=== PATIENT | male | born 1970 ===

== ENCOUNTER 2017-01-26 23:42 | Inpatient (IN) | payer MEDICAID, SELFPAY ==
[2017-01-27] MEDS ORDERED: Labetalol 5 mg/ml Inj 20ML IVP STA (00:28)
--- NOTE | 2017-01-27 00:29 | ED PDOC ---
HPI: General Adult Time Seen by Provider: 01/26/17 23:58 Chief Complaint (Nursing): Dizziness/Lightheaded Chief Complaint (Provider): Left sided upper and lower extremity weakness History Per: Patient History/Exam Limitations: no limitations Onset/Duration Of Symptoms: Hrs Have you had recent travel within the past 21 days to any of the following countries: [place], [place], [place] or [place]?: No Current Symptoms Are (Timing): Still Present Additional History Per: Patient Additional Complaint(s): 46yo male with past medical history of hypertension, occasionally non-complaint with his Metroprolol, presents to ED for evaluation of left sided upper and lower extremity numbness and weakness, present since 11AM yesterday. Patient reports numbness and loss of strength to his left upper and lower extremity; also reports dizziness. He additionally states he missed his dose of Metroprolol yesterday. Patient denies any headache or vision changes and states his right upper and lower extremities are normal. Patient offers no other medical complaints. NIHSS Stroke Scale - Date/Time Evaluation Performed Date Performed: 01/27/17 Time Performed: 00:00 When Was NIHSS Performed: Baseline - How Severe is the Stroke Level of Consciousness: 0=Alert LOC to Questions: 0=Both comments correct LOC to commands: 0=Obeys both correctly Best Gaze: 0=Normal Visual: 0=No visual loss Facial: 1=Minor asymmetry Motor Arm - Left: 1=Drift noted before 10 sec Motor Arm - Right: 0=No drift Motor Leg - Left: 0=No drift Motor Leg - Right: 0=No drift Limb Ataxia: 0=Absent Sensory: 0=Normal Best Language: 0=No aphasia Dysarthia: 1=Mild to moderate slurring Extinction & Inattention (Neglect): 0=Normal, no object Score: 3 Past Medical History Reviewed: Historical Data, Nursing Documentation, Vital Signs Vital Signs: Last Vital Signs Temp 98.4 F 01/26/17 23:50 Pulse 78 01/27/17 00:53 Resp 14 01/27/17 00:45 BP 222/153 H 01/27/17 00:53 Pulse Ox 100 01/27/17 01:20 - Medical History PMH: HTN - Surgical History Surgical History: No Surg Hx - Family History Family History: States: No Known Family Hx - Social History Current smoker - smoking cessation education provided: No Ex-Smoker (has not smoked in the last 12 months): No Alcohol: None Drugs: Denies - Home Medications Home Medications: Ambulatory Orders Medication Instructions Recorded Lisinopril [Zestril] 10 mg PO DAILY 01/27/17 Metoprolol Succinate [Toprol XL] 50 mg PO DAILY 01/27/17 - Allergies Allergies/Adverse Reactions: Allergies Allergy/AdvReac Type Severity Reaction Status Date / Time No Known Allergies Allergy Verified 01/26/17 23:50 Review of Systems ROS Statement: Except As Marked, All Systems Reviewed And Found Negative Neurological: Positive for: Weakness (left upper and lower extremity), Change in Speech, Dizziness. Negative for: Headache Physical Exam - Reviewed Nursing Documentation Reviewed: Yes Vital Signs Reviewed: Yes - Physical Exam Appears: Positive for: Non-toxic Head Exam: Positive for: ATRAUMATIC, NORMAL INSPECTION, NORMOCEPHALIC Skin: Positive for: Warm Eye Exam: Positive for: Normal appearance ENT: Positive for: Normal ENT Inspection Neck: Positive for: Supple Cardiovascular/Chest: Positive for: Regular Rate, Rhythm Respiratory: Positive for: Normal Breath Sounds. 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 Negative for: Cerebellar Tests - Laboratory Results Result Diagrams: 01/27/17 00:10 01/27/17 00:10 - ECG O2 Sat by Pulse Oximetry: 100 (RA) Pulse Ox Interpretation: Normal - Critical Care Total Time (In Min): 60 Medical Decision Making Medical Decision Making: Time: 6 Impression: Right sided CVA w/ left sided deficits Plan: -- CT Head w/o contrast -- Labs -- Chest x-ray -- Labetalol 10 mg IVP Reassess Time: 54 CT Head FINDINGS: Brain: No acute intracranial hemorrhage. No significant white matter disease. No edema. Ventricles: No significant ventriculomegaly. Bones: No acute displaced fracture. Sinuses: Unremarkable as visualized. No acute sinusitis. Mastoid air cells: Unremarkable as visualized. No mastoid effusion. IMPRESSION: No acute intracranial hemorrhage, or suspicious mass effect. Acute infarction may be CT occult within first 24 hours. If a focal deficit persists, consider followup CT or MRI for further evaluation. Case discussed with Dr. Carpio and patient to be admitted to ICU for CVA, Hypertensive Emergency and MARIANELA. Case discussed with Dr. Haney, neurology, who agrees with admission. Scribe Attestation: Documented by Luciana Galvin acting as a scribe for Sabas Castano MD. Provider Attestation: All medical record entries made by the Scribe were at my direction and personally dictated by me. I have reviewed the chart and agree that the record accurately reflects my personal performance of the history, physical exam, medical decision making, and the department course for this patient. I have also personally directed, reviewed, and agree with the discharge instructions and disposition. Disposition - Clinical Impression Clinical Impression: CVA (cerebral vascular accident), Hypertensive emergency - Patient ED Disposition Is Patient to be Admitted: Yes - Disposition Disposition Time: 00:45 Condition: SERIOUS
[2017-01-27 00:35] LABS: BASO # 0.1 K/uL (0.0-0.2); BASO % 0.7 % (0.0-2.0); EOS # 0.5 K/uL (0.0-0.7); EOS % 4.1 % (0.0-4.0); HEMATOCRIT 41.8 % (35.0-51.0); LYMPH % 26.6 % (20.0-40.0); MEAN CELL VOLUME 90.5 fl (80.0-94.0); MEAN CORPUSCULAR HEMOGLOBIN 30.9 pg (27.0-31.0); MEAN CORPUSCULAR HGB CONC 34.1 g/dL (33.0-37.0); MEAN PLATELET VOLUME 12.4 fl (7.2-11.7); MONO # 0.8 K/uL (0.0-0.8); MONO % 7.1 % (0.0-10.0); NEUT # 6.9 K/uL (1.8-7.0); NEUT % 61.5 % (50.0-75.0); NRBC % 0.1 % (0.0-0.0); RED CELL DISTRIBUTION WIDTH 13.4 % (11.5-14.5); WHITE BLOOD COUNT 11.2 K/uL (4.8-10.8)
[2017-01-27 00:42] LABS: ALB/GLOB RATIO 1.4 (1.0-2.1); BILIRUBIN,TOTAL 0.7 mg/dl (0.2-1.3); CALCIUM 9.5 mg/dL (8.4-10.2); POTASSIUM 3.7 MMOL/L (3.6-5.0); TOTAL PROTEIN 8.2 G/DL (6.3-8.2)
[2017-01-27 00:46] LABS: PARTIAL THROMBOPLASTIN TIME 34.3 Seconds (25.6-37.1)
[2017-01-27] MEDS ORDERED: Labetalol 300 MG in Dextrose 5% In Water 240 ML IV ONE (00:51)
--- NOTE | 2017-01-27 00:55 | CT ---
EXAM: CT Head Without Intravenous Contrast CLINICAL HISTORY: 46 years old, male; Signs and symptoms; Dizziness; Additional info: L sided weakness TECHNIQUE: Axial computed tomography images of the head/brain without intravenous contrast. All CT scans at this facility use one or more dose reduction techniques, viz.: automated exposure control; ma/kV adjustment per patient size (including targeted exams where dose is matched to indication; i.e. head); or iterative reconstruction technique. Coronal and sagittal reformatted images were created and reviewed. COMPARISON: No relevant prior studies available. FINDINGS: Brain: No acute intracranial hemorrhage. No significant white matter disease. No edema. Ventricles: No significant ventriculomegaly. Bones: No acute displaced fracture. Sinuses: Unremarkable as visualized. No acute sinusitis. Mastoid air cells: Unremarkable as visualized. No mastoid effusion. IMPRESSION: No acute intracranial hemorrhage, or suspicious mass effect. Acute infarction may be CT occult within first 24 hours. If a focal deficit persists, consider followup CT or MRI for further evaluation.
[2017-01-27 00:56] LABS: TROPONIN I 0.031 ng/mL (0.00-0.120)
--- NOTE | 2017-01-27 03:16 | CP.PCM.HP ---
History of Present Illness - History of Present Illness History of Present Illness: 46 yr old male with hx of HTN on Lopressor and daily baby ASA therapy who skipped his daily meds x 1 day and next day noted some numbness, slurred speech , LUE and LLE numness after he woke up from sleep along with some dizziness. Took his meds after the onset of symptoms but continued to have the symptoms several hours later and presented himdelf to ER in the evening by which time the pt was outside the window for TPA therapy as per ER physician. His BP was significantly elevated on arrival and was started iv vasopressors by ED physician. Work up in ED included CT head which was neg for any acute pathology. Pt also denied any severe headache, CP, LOC, any visual changes or any seizure activity. He was admitted on recomendation of Neuro MD to ICU for further management. He was alert awake at time of evaluation and in company of his family. Present on Admission - Present on Admission Any Indicators Present on Admission: No History of DVT/PE: No History of Uncontrolled Diabetes: No Urinary Catheter: No Decubitus Ulcer Present: No Decubitus Ulcer Location: none History Surgical Site Infection Following: None Review of Systems - Review of Systems Review of Systems: All 14 sysyems reviewed and no other added findings except for hx of HTN - Constitutional Constitutional: As Per HPI Past Patient History - Tetanus Immunizations Tetanus Immunization: Unknown - Past Medical History & Family History Past Medical History?: Yes Pertinent Family History: Past hx oh HTN. Family Hx of CVA in an aunt and Colon Ca in an uncle. - Past Social History Smoking Status: Never Smoked Alcohol: None Drugs: Denies - CARDIAC Hx Cardiac Disorders: No Hx Angina: No Hx Atrial Fibrillation: No Hx Cardia Arrhythmia: No Hx Circulatory Problems: No Hx Congestive Heart Failure: No Hx Hypertension: Yes - PULMONARY Hx Respiratory Disorders: No Hx Asthma: No Hx Bronchitis: No Hx Chronic Obstructive Pulmonary Disease (COPD): No Hx Lung Cancer: No Hx Sleep Apnea: No - NEUROLOGICAL Hx Neurological Disorder: No HX Cerebrovascular Accident: No Hx Seizures: No Hx Transient Ischemic Attacks (TIA): No - HEENT Hx HEENT Problems: No - RENAL Hx Chronic Kidney Disease: No Hx Renal Failure: No - ENDOCRINE/METABOLIC Hx Endocrine Disorders: No Hx Diabetes Mellitus Type 2: No - HEMATOLOGICAL/ONCOLOGICAL Hx Cancer: No Hx Cirrhosis: No Hx Hepatitis A: No Hx Hepatitis B: No Hx Hepatitis C: No - INTEGUMENTARY Hx Dermatological Problems: No Hx Eczema: No Hx Melanoma: No - MUSCULOSKELETAL/RHEUMATOLOGICAL Hx Musculoskeletal Disorders: No Hx Arthritis: No Hx Fractures: No - GASTROINTESTINAL Hx Gastrointestinal Disorders: No - GENITOURINARY/GYNECOLOGICAL Hx Genitourinary Disorders: No - PSYCHIATRIC Hx Psychophysiologic Disorder: No Hx Substance Use: No - SURGICAL HISTORY Hx Surgeries: No - ANESTHESIA Hx Anesthesia: No Meds Allergies/Adverse Reactions: Allergies Allergy/AdvReac Type Severity Reaction Status Date / Time No Known Allergies Allergy Verified 01/26/17 23:50 Physical Exam - Constitutional Appears: Well, Non-toxic - Head Exam Head Exam: ATRAUMATIC, NORMAL INSPECTION, NORMOCEPHALIC - Eye Exam Eye Exam: Normal appearance, PERRL Pupil Exam: NORMAL ACCOMODATION - ENT Exam ENT Exam: Normal Exam, Normal External Ear Exam - Neck Exam Neck exam: Positive for: Full Rom, Normal Inspection - Respiratory Exam Respiratory Exam: Clear to Auscultation Bilateral, NORMAL BREATHING PATTERN - Cardiovascular Exam Cardiovascular Exam: REGULAR RHYTHM, RRR - GI/Abdominal Exam GI & Abdominal Exam: Normal Bowel Sounds, Soft - Exam Exam: NORMAL INSPECTION - Extremities Exam Extremities exam: Positive for: full ROM, normal inspection - Back Exam Back exam: NORMAL INSPECTION - Neurological Exam Neurological exam: Normal Gait Additional comments: Mild L sided facial drool and thickness of voice as per family. Also subjective CHICO and LL extremity numbness. - Skin Skin Exam: Intact, Normal Color, Warm Results - Vital Signs Recent Vital Signs: Last Vital Signs Temp 98.4 F 01/26/17 23:50 Pulse 78 01/27/17 01:55 Resp 18 01/27/17 01:55 BP 207/148 H 01/27/17 01:55 Pulse Ox 100 01/27/17 01:49 - Labs Result Diagrams: 01/27/17 00:10 01/27/17 00:10 Labs: Laboratory Results - last 24 hr 01/27/17 01/27/17 01/27/17 00:10 00:10 00:10 WBC 11.2 H RBC 4.62 Hgb 14.3 Hct 41.8 MCV 90.5 MCH 30.9 MCHC 34.1 RDW 13.4 Plt Count 136 MPV 12.4 H Neut % (Auto) 61.5 Lymph % (Auto) 26.6 [place] % (Auto) 7.1 Eos % (Auto) 4.1 H Baso % (Auto) 0.7 Neut # 6.9 Lymph # 3.0 [place] # 0.8 Eos # 0.5 Baso # 0.1 PT 12.6 INR 1.1 APTT 34.3 Sodium 145 Potassium 3.7 Chloride 107 Carbon Dioxide 23 Anion Gap 19 BUN 27 H Creatinine 1.9 H Est GFR ( Amer) 46 Est GFR (Non-Af Amer) 38 Random Glucose 114 H Calcium 9.5 Total Bilirubin 0.7 AST 24 ALT 33 Alkaline Phosphatase 81 Troponin I 0.0310 Total Protein 8.2 Albumin 4.8 Globulin 3.4 Albumin/Globulin Ratio 1.4 Triglycerides 226 H Cholesterol 225 H LDL Cholesterol Direct 140 H HDL Cholesterol 50 Blood Type Antibody Screen BBK History Checked 01/27/17 00:10 WBC RBC Hgb Hct MCV MCH MCHC RDW Plt Count MPV Neut % (Auto) Lymph % (Auto) [place] % (Auto) Eos % (Auto) Baso % (Auto) Neut # Lymph # [place] # Eos # Baso # PT INR APTT Sodium Potassium Chloride Carbon Dioxide Anion Gap BUN Creatinine Est GFR ( Amer) Est GFR (Non-Af Amer) Random Glucose Calcium Total Bilirubin AST ALT Alkaline Phosphatase Troponin I Total Protein Albumin Globulin Albumin/Globulin Ratio Triglycerides Cholesterol LDL Cholesterol Direct HDL Cholesterol Blood Type O NEGATIVE Antibody Screen Negative BBK History Checked No verified bt - EKG Data EKG comments: NSR without any Ac ST-t Changes - Impressions Impression: CT head neg for any ac intracranial pathology. Assessment & Plan - Assessment and Plan (Free Text) Assessment: 46 yr old male with hx of HTN who skipped his daily meds x 1 day and next day noted some numbness, slurred speech, LUE and LLE numness after he woke up from sleep along with some dizziness. Pt was outside the window for TPA therapy.Work up in ED included CT head which was neg for any acute pathology. However his BP was significantly elevated and was admitted after the initial interventions to ICU for further management. Plan: 1. Admit to ICU for close hemodynamic monitoring and necessary interventions. 2. Fall and sezure precautions. 3. Neurocheck round the clock for any change in neural status. 4. IV antihypertensive meds but keep SBP between 170-180 to avoid any compromise in neural perfusion. 5. Initiate ASA therapy. 6. Stress ulcer and DVT prophylaxis with proton pump inhibitor, SCD and SC anti coagulant therapy. 7. Seriel troponins, Carotid doppler and ECHO as TIA and hypertensive emergency work up. 8. PT and speech consults. 9. Neurology consult and follow up. The pt during hospital stay shall be followed by hospitalist service, neurology and inteve care service and post discharge sent for further up under care of his PMD
[2017-01-27 06:33] LABS: CALCIUM 9.7 mg/dL (8.4-10.2); POTASSIUM 3.7 MMOL/L (3.6-5.0)
[2017-01-27 07:00] LABS: THYROID STIMULATING HORMONE 2.75 mIU/ML (0.46-4.68)
--- NOTE | 2017-01-27 07:06 | RAD ---
HISTORY: L sided weakness COMPARISON: No prior. FINDINGS: LUNGS: No active pulmonary disease. PLEURA: No significant pleural effusion identified, no pneumothorax apparent. CARDIOVASCULAR: Normal. OSSEOUS STRUCTURES: No significant abnormalities. VISUALIZED UPPER ABDOMEN: Normal. OTHER FINDINGS: None. IMPRESSION: No active disease.
--- NOTE | 2017-01-27 08:48 | CP.CCUPN ---
CCU Subjective - Physician Review Subjective (Free Text): ICU admission and consultation: discussed with Night Hospitalist MD: 46M admitted overnight for acute onset left facial droop, slurred speech and left hemiparesis, had not taking usual home meds the day prior to onset of symptoms, but took ASA and Lopressor after symptoms began and were noted to be non-resolving which prompted ER eval. He came to ER approx. 12H after onset of symptoms, CT Brain did not show any acute bleed nor other acute pathology. BP elevation to 220/150, HR 78 prompted treatment with IV Labetalol infusion. This continued until 500AM with discontinuation of Labetalol with BP down to 142/89. Presently , awake and alert, still has left hemiparesis, left facial asymmetry not so apparent now, mild dysarthria noted. BP now 165/96 with HR 77. He denies any headache, dizziness, nausea, visual changes, vertigo, palpitations, chest discomfort or SOB at bed rest. Other vitals and I/O's reviewed. Allergies: NKDA ROS: No other pertinent negs or positives on 10+ system review. Outpt Meds: Zestril, Toprol XL PMSFH: ----All Nursing and physician documentation reviewed to date; no new pertinent info noted relevant to current medical problems. MAJOR PROBLEMS: 1. CVA, r/o R MCA distribution 2. Accelerated HTN 2 #1 3. Azotemia, r/o Dehydration vs CKD / MARIANELA 4. Hyperlipidemia 5. Hyperglycemia, r/o DM II PLAN: 1. Treat for sustained BP elevation above MAP 120 only with IVPB Labetalol. 2. Repeat CT or MRI brain imaging 24H later or as directed by Neurology. 3. Resume ACEi and Metoprolol. 4. ASA, Statin stated. 5. PT/OT eval. CCU Objective - Vital Signs / Intake & Output Vital Signs (Last 4 hours): Vital Signs Temp Pulse Resp BP Pulse Ox 01/27/17 08:00 98.3 F 77 15 165/96 H 99 01/27/17 07:00 69 15 148/87 99 01/27/17 06:00 66 14 147/103 H 99 01/27/17 05:00 70 15 142/89 98 Intake and Output (Last 8hrs): Intake & Output 01/26/17 01/27/17 01/27/17 22:59 06:59 14:59 Intake Total 170 Output Total 200 Balance -30 Weight 180 lb Intake: IV 120 Oral 50 Output: Urine 200 Urine, Voided 200 Other: # Voids Urine, Voided 1 - Physical Exam Head: Positive for: Normocephalic Pupils: Positive for: PERRL Extroacular Muscles: Positive for: EOMI Conjunctiva: Positive for: Normal Mouth: Positive for: Moist Mucous Membranes Neck: Positive for: Normal Range of Motion. Negative for: Meningeal Signs, JVD Respiratory/Chest: Positive for: Clear to Auscultation. Negative for: Accessory Muscle Use, Wheezes Cardiovascular: Positive for: Regular Rate and Rhythm, Normal S1, S2. Negative for: Murmurs, Rub Abdomen: Positive for: Normal Bowel Sounds. Negative for: Tenderness, Distention, Mass/Organomegaly Lower Extremity: Positive for: Normal Inspection, NORMAL PULSES. Negative for: Edema, CALF TENDERNESS, Cyanosis Neurological: Positive for: GCS=15, Other (Left Hemiparesis: motor 3-4/5 left upper worse than LLE). Negative for: Speech Normal Psychiatric: Positive for: Alert, Oriented x 3, Normal Affect - Medications Active Medications: Active Medications Generic Name Dose Route Start Last Admin Trade Name Freq PRN Reason Stop Dose Admin Acetaminophen 650 mg 01/27/17 01:50 Tylenol 325mg Tab PO Q6H PRN Pain, Mild (1-3) Aspirin 81 mg 01/27/17 09:00 Ecotrin PO DAILY [facility] Atorvastatin Calcium 40 mg 01/27/17 09:00 Lipitor PO DAILY [facility] Influenza Virus Vaccine 0.5 ml 01/27/17 09:00 Afluria (Pf)(18yr & Older) IM 01/27/17 09:01 .ONCE ONE Labetalol HCl 20 mg 01/27/17 08:37 Trandate IVP Q4 PRN Systolic Blood Pressure Lisinopril 10 mg 01/27/17 09:00 Zestril PO DAILY [facility] Metoprolol Succinate 50 mg 01/27/17 09:00 Toprol Xl PO DAILY [facility] Ondansetron HCl 4 mg 01/27/17 01:50 Zofran Inj IVP Q6H PRN Nausea/Vomiting Pantoprazole Sodium 40 mg 01/27/17 09:00 Protonix Inj IVP DAILY [facility] - Patient Studies Lab Studies: Lab Studies 01/27/17 01/27/17 01/27/17 Range/Units 05:30 01:30 00:38 WBC (4.8-10.8) K/uL RBC (4.40-5.90) Mil/uL Hgb (12.0-18.0) g/dL Hct (35.0-51.0) % MCV (80.0-94.0) fl MCH (27.0-31.0) pg MCHC (33.0-37.0) g/dL RDW (11.5-14.5) % Plt Count (130-400) K/uL MPV (7.2-11.7) fl Neut % (Auto) (50.0-75.0) % Lymph % (Auto) (20.0-40.0) % [place] % (Auto) (0.0-10.0) % Eos % (Auto) (0.0-4.0) % Baso % (Auto) (0.0-2.0) % Neut # (1.8-7.0) K/uL Lymph # (1.0-4.3) K/uL [place] # (0.0-0.8) K/uL Eos # (0.0-0.7) K/uL Baso # (0.0-0.2) K/uL PT (9.8-13.1) Seconds INR (0.9-1.2) APTT (25.6-37.1) Seconds Sodium 142 (132-148) mmol/l Potassium 3.7 (3.6-5.0) MMOL/L Chloride 106 (98-107) mmol/L Carbon Dioxide 24 (22-30) mmol/L Anion Gap 16 (10-20) BUN 25 H (9-20) mg/dl Creatinine 1.9 H (0.8-1.5) mg/dL Est GFR ( Amer) 46 Est GFR (Non-Af Amer) 38 POC Glucose (mg/dL) 120 H (65-110) mg/dL Random Glucose 137 H (75-110) mg/dL Calcium 9.7 (8.4-10.2) mg/dL Magnesium 2.0 (1.6-2.3) MG/DL Total Bilirubin (0.2-1.3) mg/dl AST (17-59) U/L ALT (21-72) U/L Alkaline Phosphatase (38-126) U/L Troponin I (0.00-0.120) ng/mL Total Protein (6.3-8.2) G/DL Albumin (3.5-5.0) g/dL Globulin (2.2-3.9) gm/dL Albumin/Globulin Ratio (1.0-2.1) Triglycerides (0-149) mg/DL Cholesterol (0-199) mg/dL LDL Cholesterol Direct (0-129) mg/dL HDL Cholesterol (30-70) MG/DL TSH 3rd Generation 2.75 (0.46-4.68) mIU/ML Blood Type Blood Type Confirm O NEGATIVE Antibody Screen BBK History Checked 01/27/17 01/27/17 01/27/17 Range/Units 00:10 00:10 00:10 WBC (4.8-10.8) K/uL RBC (4.40-5.90) Mil/uL Hgb (12.0-18.0) g/dL Hct (35.0-51.0) % MCV (80.0-94.0) fl MCH (27.0-31.0) pg MCHC (33.0-37.0) g/dL RDW (11.5-14.5) % Plt Count (130-400) K/uL MPV (7.2-11.7) fl Neut % (Auto) (50.0-75.0) % Lymph % (Auto) (20.0-40.0) % [place] % (Auto) (0.0-10.0) % Eos % (Auto) (0.0-4.0) % Baso % (Auto) (0.0-2.0) % Neut # (1.8-7.0) K/uL Lymph # (1.0-4.3) K/uL [place] # (0.0-0.8) K/uL Eos # (0.0-0.7) K/uL Baso # (0.0-0.2) K/uL PT 12.6 (9.8-13.1) Seconds INR 1.1 (0.9-1.2) APTT 34.3 (25.6-37.1) Seconds Sodium 145 (132-148) mmol/l Potassium 3.7 (3.6-5.0) MMOL/L Chloride 107 (98-107) mmol/L Carbon Dioxide 23 (22-30) mmol/L Anion Gap 19 (10-20) BUN 27 H (9-20) mg/dl Creatinine 1.9 H (0.8-1.5) mg/dL Est GFR ( Amer) 46 Est GFR (Non-Af Amer) 38 POC Glucose (mg/dL) (65-110) mg/dL Random Glucose 114 H (75-110) mg/dL Calcium 9.5 (8.4-10.2) mg/dL Magnesium (1.6-2.3) MG/DL Total Bilirubin 0.7 (0.2-1.3) mg/dl AST 24 (17-59) U/L ALT 33 (21-72) U/L Alkaline Phosphatase 81 (38-126) U/L Troponin I 0.0310 (0.00-0.120) ng/mL Total Protein 8.2 (6.3-8.2) G/DL Albumin 4.8 (3.5-5.0) g/dL Globulin 3.4 (2.2-3.9) gm/dL Albumin/Globulin Ratio 1.4 (1.0-2.1) Triglycerides 226 H (0-149) mg/DL Cholesterol 225 H (0-199) mg/dL LDL Cholesterol Direct 140 H (0-129) mg/dL HDL Cholesterol 50 (30-70) MG/DL TSH 3rd Generation (0.46-4.68) mIU/ML Blood Type O NEGATIVE Blood Type Confirm Antibody Screen Negative BBK History Checked No verified bt 01/27/17 Range/Units 00:10 WBC 11.2 H (4.8-10.8) K/uL RBC 4.62 (4.40-5.90) Mil/uL Hgb 14.3 (12.0-18.0) g/dL Hct 41.8 (35.0-51.0) % MCV 90.5 (80.0-94.0) fl MCH 30.9 (27.0-31.0) pg MCHC 34.1 (33.0-37.0) g/dL RDW 13.4 (11.5-14.5) % Plt Count 136 (130-400) K/uL MPV 12.4 H (7.2-11.7) fl Neut % (Auto) 61.5 (50.0-75.0) % Lymph % (Auto) 26.6 (20.0-40.0) % [place] % (Auto) 7.1 (0.0-10.0) % Eos % (Auto) 4.1 H (0.0-4.0) % Baso % (Auto) 0.7 (0.0-2.0) % Neut # 6.9 (1.8-7.0) K/uL Lymph # 3.0 (1.0-4.3) K/uL [place] # 0.8 (0.0-0.8) K/uL Eos # 0.5 (0.0-0.7) K/uL Baso # 0.1 (0.0-0.2) K/uL PT (9.8-13.1) Seconds INR (0.9-1.2) APTT (25.6-37.1) Seconds Sodium (132-148) mmol/l Potassium (3.6-5.0) MMOL/L Chloride (98-107) mmol/L Carbon Dioxide (22-30) mmol/L Anion Gap (10-20) BUN (9-20) mg/dl Creatinine (0.8-1.5) mg/dL Est GFR ( Amer) Est GFR (Non-Af Amer) POC Glucose (mg/dL) (65-110) mg/dL Random Glucose (75-110) mg/dL Calcium (8.4-10.2) mg/dL Magnesium (1.6-2.3) MG/DL Total Bilirubin (0.2-1.3) mg/dl AST (17-59) U/L ALT (21-72) U/L Alkaline Phosphatase (38-126) U/L Troponin I (0.00-0.120) ng/mL Total Protein (6.3-8.2) G/DL Albumin (3.5-5.0) g/dL Globulin (2.2-3.9) gm/dL Albumin/Globulin Ratio (1.0-2.1) Triglycerides (0-149) mg/DL Cholesterol (0-199) mg/dL LDL Cholesterol Direct (0-129) mg/dL HDL Cholesterol (30-70) MG/DL TSH 3rd Generation (0.46-4.68) mIU/ML Blood Type Blood Type Confirm Antibody Screen BBK History Checked Laboratory Results - last 24 hr 01/27/17 01/27/17 01/27/17 00:10 00:10 00:10 WBC 11.2 H RBC 4.62 Hgb 14.3 Hct 41.8 MCV 90.5 MCH 30.9 MCHC 34.1 RDW 13.4 Plt Count 136 MPV 12.4 H Neut % (Auto) 61.5 Lymph % (Auto) 26.6 Galax % (Auto) 7.1 Eos % (Auto) 4.1 H Baso % (Auto) 0.7 Neut # 6.9 Lymph # 3.0 Galax # 0.8 Eos # 0.5 Baso # 0.1 PT 12.6 INR 1.1 APTT 34.3 Sodium 145 Potassium 3.7 Chloride 107 Carbon Dioxide 23 Anion Gap 19 BUN 27 H Creatinine 1.9 H Est GFR ( Amer) 46 Est GFR (Non-Af Amer) 38 POC Glucose (mg/dL) Random Glucose 114 H Calcium 9.5 Magnesium Total Bilirubin 0.7 AST 24 ALT 33 Alkaline Phosphatase 81 Troponin I 0.0310 Total Protein 8.2 Albumin 4.8 Globulin 3.4 Albumin/Globulin Ratio 1.4 Triglycerides 226 H Cholesterol 225 H LDL Cholesterol Direct 140 H HDL Cholesterol 50 TSH 3rd Generation Blood Type Blood Type Confirm Antibody Screen BBK History Checked 01/27/17 01/27/17 01/27/17 00:10 00:38 01:30 WBC RBC Hgb Hct MCV MCH MCHC RDW Plt Count MPV Neut % (Auto) Lymph % (Auto) Gal[place] % (Auto) Eos % (Auto) Baso % (Auto) Neut # Lymph # [place] # Eos # Baso # PT INR APTT Sodium Potassium Chloride Carbon Dioxide Anion Gap BUN Creatinine Est GFR ( Amer) Est GFR (Non-Af Amer) POC Glucose (mg/dL) 120 H Random Glucose Calcium Magnesium Total Bilirubin AST ALT Alkaline Phosphatase Troponin I Total Protein Albumin Globulin Albumin/Globulin Ratio Triglycerides Cholesterol LDL Cholesterol Direct HDL Cholesterol TSH 3rd Generation Blood Type O NEGATIVE Blood Type Confirm O NEGATIVE Antibody Screen Negative BBK History Checked No verified bt 01/27/17 05:30 WBC RBC Hgb Hct MCV MCH MCHC RDW Plt Count MPV Neut % (Auto) Lymph % (Auto) [place] % (Auto) Eos % (Auto) Baso % (Auto) Neut # Lymph # [place] # Eos # Baso # PT INR APTT Sodium 142 Potassium 3.7 Chloride 106 Carbon Dioxide 24 Anion Gap 16 BUN 25 H Creatinine 1.9 H Est GFR ( Amer) 46 Est GFR (Non-Af Amer) 38 POC Glucose (mg/dL) Random Glucose 137 H Calcium 9.7 Magnesium 2.0 Total Bilirubin AST ALT Alkaline Phosphatase Troponin I Total Protein Albumin Globulin Albumin/Globulin Ratio Triglycerides Cholesterol LDL Cholesterol Direct HDL Cholesterol TSH 3rd Generation 2.75 Blood Type Blood Type Confirm Antibody Screen BBK History Checked Fingerstick Blood Sugar Results: 120 Review of Systems - Review of Systems All systems: reviewed and no additional remarkable complaints except (as above) Critical Care Progress Note - Nutrition Nutrition: Nutrition Category Date Time Status Heart Healthy Diet [DIET] Diets 01/27/17 Breakfast Active
[2017-01-27] MEDS ORDERED: Enoxaparin 40 mg Syringe SC SCH (09:00)
[2017-01-27] MEDS ORDERED: Influenza Vaccine 18yr & older 0.5 ML/45 MCG SYR IM ONE (09:00)
--- NOTE | 2017-01-27 09:06 | CARD ---
APPROVED REPORT EKG Measurement Heart [id number] <Conclusion> Normal sinus rhythm Right bundle branch block Minimal voltage criteria for LVH, may be normal variant T wave abnormality, consider lateral ischemia Abnormal ECG
[2017-01-27] MEDS: Metoprolol Succinate 50 mg XL Tab PO SCH ×2 (09:30→16:21)
[2017-01-27] MEDS: Labetalol 5 mg/ml Inj 20ML IVP PRN ×2 (12:38→16:46)
[2017-01-27] MEDS ORDERED: Nicardipine 20 MG/200 ML 20 MG/200 ML BAG IV ONE (20:35)
[2017-01-28] MEDS ORDERED: Nicardipine 20 MG/200 ML 20 MG/200 ML BAG IV ONE ×4 (01:03→18:42)
[2017-01-28 05:34] LABS: HEMATOCRIT 39.5 % (35.0-51.0); MEAN CORPUSCULAR HEMOGLOBIN 30.7 pg (27.0-31.0); MEAN CORPUSCULAR HGB CONC 34.2 g/dL (33.0-37.0); RED CELL DISTRIBUTION WIDTH 13.6 % (11.5-14.5); WHITE BLOOD COUNT 8.8 K/uL (4.8-10.8)
[2017-01-28 05:44] LABS: CALCIUM 9.7 mg/dL (8.4-10.2); POTASSIUM 3.7 MMOL/L (3.6-5.0)
--- NOTE | 2017-01-28 08:18 | CON ---
NEUROLOGY CONSULTATION DATE: REASON FOR CONSULTATION: CVA. HISTORY OF PRESENT ILLNESS: The patient is a 46-year-old male who was admitted with left-sided numbness and weakness. His symptoms started yesterday morning. He was out of time window for TPA administration by the time he came to the emergency room. He was experiencing a left-sided weakness and numbness. He denies any headache or dizziness. He does have left-sided weakness. REVIEW OF SYSTEMS: Denies any headache, dizziness, chest pain, shortness of breath, abdominal pain, constipation, diarrhea, dysuria, cough, or sputum production. PAST MEDICAL HISTORY: Includes hypertension. MEDICATIONS: At home included lisinopril and metoprolol. ALLERGIES: NO KNOWN DRUG ALLERGIES. SOCIAL HISTORY: Denies smoking, use of alcohol or illicit drugs. FAMILY HISTORY: Reviewed and noncontributory to the case. PHYSICAL EXAMINATION: GENERAL: The patient is a middle-aged male lying on the bed in no acute distress. VITAL SIGNS: His blood pressure is 204/127 earlier, at the moment is 200/119. HEENT: Head is normocephalic, atraumatic. NECK: Supple. There are no carotid bruits. LUNGS: Clear. CVS: S1 and S2 audible. No murmurs. ABDOMEN: Soft and nontender. Bowel sounds are present. NEUROLOGIC: Mental status: The patient is awake, alert and oriented to time, place and person. His speech is fluent. Naming and repetition is normal. Memory and cognition are intact. Cranial nerve examination: Pupils are 4 mm bilaterally, reactive to light. Visual warren are full. Extraocular movements are intact. There is decreased nasolabial fold on the left side. Palate is upgoing bilaterally, and tongue is midline. Motor examination: Tone is normal. There is left-sided hemiparesis with power about 3/5 on the left side and 5/5 on the right side. Reflexes are brisk on the left side. Plantars are upgoing on the left and downgoing on the right side. Sensory examination; intact to soft touch and pinprick. Gait is deferred at the moment. LABORATORY DATA: Reviewed, showed WBC of 11.2, hemoglobin 14.3, hematocrit of 41.8, and platelets of 136. Sodium 142, potassium 3.7, chloride 106, carbon dioxide content of 24, BUN of 25, creatinine 1.9, and glucose of 137. He had a CT scan of the head done, which shows no acute intracranial pathology. His LDL is 140, cholesterol is 225. IMPRESSION: 1. Cerebrovascular accident with left-sided hemiparesis. 2. Uncontrolled hypertension. RECOMMENDATIONS: 1. The patient will have MRI of the brain without contrast. 2. The patient will have a carotid Doppler study. 3. The patient will have echocardiogram. 4. The patient was started on aspirin, which is to be continued. 5. The patient also will be continued on high-dose statin. 6. The patient's blood pressure is to be better controlled. Since it is more than 24 hours since his symptom onset, the patient may be started on IV nicardipine and blood pressure controlled better with it. 7. The patient will have physical therapy. 8. Please continue supportive care and other treatment. Thank you for the opportunity to participate in the care of this patient. Mat Haney MD
--- NOTE | 2017-01-28 10:34 | MRI ---
PROCEDURE: MRI BRAIN WITHOUT CONTRAST HISTORY: stroke COMPARISON: Head CT without contrast 01/27/2017. TECHNIQUE: Multiplanar, multisequence MR images of the brain were obtained without intravenous contrast enhancement. FINDINGS: HEMORRHAGE: None DWI: An acute or subacute infarction exhibits restricted diffusion at the mid to posterior portion of the external capsule. There is no significant mass effect resulting. BRAIN PARENCHYMA: Nonspecific multifocal bifrontal subcortical white matter abnormalities are infrequently encountered in this patient with remaining white matter are unremarkable, including the corpus callosum. Further clinical correlation is advised as the patient is relatively young for exhibiting chronic microangiopathy, a less the patient has a comorbidity such as diabetes or other vasculopathic disorder. Clinically correlate. Sulci and cisterns appear normal in volume and there is no suspicious extra-axial collection or mass effect throughout. Posterior fossa contents appear diffusely unremarkable with the craniocervical junction. VENTRICLES: Unremarkable. No hydrocephalus. CRANIUM: Unremarkable. ORBITS: Grossly unremarkable. PARANASAL SINUSES/MASTOIDS: Clear VASCULAR SYSTEM: Skull base flow voids intact. OTHER FINDINGS: None. IMPRESSION: 1. An acute or subacute small infarction is appreciate the right external capsule posteriorly. Given the pattern limited chronic microangiopathy in this 39 year old patient, unless there is a prior vasculopathic comorbidity, the pattern would be unusual and consider potential vasculitis, demyelination and other etiologies. Further clinical correlation is advised. 2. Remainder of the examination appears unremarkable.
--- NOTE | 2017-01-28 10:35 | MRI ---
PROCEDURE: Magnetic Resonance Angiography Brain HISTORY: stroke COMPARISON: None available. TECHNIQUE: 3D time of flight MR angiography of the intracranial arteries was performed. Rotating maximum intensity projection images were generated. FINDINGS: INTERNAL CAROTID ARTERIES: Unremarkable. The skull base, petrous, cavernous and supraclinoid segments are bilaterally widely patient. ANTERIOR CEREBRAL ARTERIES: Unremarkable. A1 and A2 segments are widely patent. Smaller distal branches unremarkable, as visualized. MIDDLE CEREBRAL ARTERIES: Unremarkable. M1 and M2 segments are widely patent. Perisylvian branches grossly symmetric. POSTERIOR CIRCULATION: Basilar Artery: Unremarkable. Distal Vertebral Arteries: Unremarkable. Posterior Cerebral Arteries: Unremarkable. Posterior Inferior Cerebellar Arteries: Unremarkable. ANEURYSM/ VASCULAR MALFORMATIONS: None. OTHER FINDINGS: None. IMPRESSION: Unremarkable MR angiography of the brain.
[2017-01-28] MEDS: Metoprolol Succinate 50 mg XL Tab PO SCH (11:19)
[2017-01-28] MEDS: Enoxaparin 40 mg Syringe SC SCH ×2 (11:24→12:25)
--- NOTE | 2017-01-28 11:54 | CP.PCM.PN ---
Subjective - Date & Time of Evaluation Date of Evaluation: 01/28/17 Time of Evaluation: 11:00 - Subjective Subjective: Pt is alert, oriented x 3 tolerating PO diet has left hemiparesis no CP no SOB no abd pain Discussed diagnosis and treatment plan with pt and his Objective - Vital Signs/Intake and Output Vital Signs (last 24 hours): Temp Pulse Resp BP Pulse Ox 98.7 F 91 H 15 183/113 H 100 01/28/17 08:00 01/28/17 11:19 01/28/17 08:00 01/28/17 11:19 01/28/17 08:00 Intake and Output: 01/28/17 01/28/17 06:59 18:59 Intake Total 350 15 Output Total 1350 400 Balance -1000 -385 - Medications Medications: Current Medications Acetaminophen (Tylenol 325mg Tab) 650 mg PO Q6H PRN PRN Reason: Pain, Mild (1-3) Aspirin (Aspirin) 325 mg PO DAILY [facility] Last Admin: 01/28/17 11:24 Dose: 325 mg Atorvastatin Calcium (Lipitor) 80 mg PO DAILY [facility] Enoxaparin Sodium (Lovenox) 40 mg SC DAILY [facility] PRN Reason: Protocol Last Admin: 01/28/17 11:24 Dose: Not Given Labetalol HCl (Trandate) 20 mg IVP Q4 PRN PRN Reason: Systolic Blood Pressure Last Admin: 01/27/17 16:46 Dose: 20 mg Metoprolol Succinate (Toprol Xl) 50 mg PO DAILY [facility] Last Admin: 01/28/17 11:19 Dose: 50 mg Ondansetron HCl (Zofran Inj) 4 mg IVP Q6H PRN PRN Reason: Nausea/Vomiting Pantoprazole Sodium (Protonix Inj) 40 mg IVP DAILY [facility] Last Admin: 01/28/17 11:18 Dose: 40 mg - Labs Labs: 01/28/17 04:25 01/28/17 04:25 PT 12.6 Seconds (9.8-13.1) 01/27/17 00:10 INR 1.1 (0.9-1.2) 01/27/17 00:10 APTT 34.3 Seconds (25.6-37.1) 01/27/17 00:10 - Constitutional Appears: No Acute Distress - Head Exam Head Exam: ATRAUMATIC, NORMAL INSPECTION, NORMOCEPHALIC - Eye Exam Eye Exam: EOMI, Normal appearance, PERRL Pupil Exam: NORMAL ACCOMODATION - ENT Exam ENT Exam: Mucous Membranes Moist, Normal External Ear Exam - Neck Exam Neck Exam: Full ROM. absent: Meningismus - Respiratory Exam Respiratory Exam: NORMAL BREATHING PATTERN. absent: Respiratory Distress - Cardiovascular Exam Cardiovascular Exam: REGULAR RHYTHM, +S1, +S2 - GI/Abdominal Exam GI & Abdominal Exam: Soft, Normal Bowel Sounds. absent: Tenderness - Extremities Exam Extremities Exam: Normal Capillary Refill. absent: Calf Tenderness - Back Exam Back Exam: absent: CVA tenderness (L), CVA tenderness (R) - Neurological Exam Neurological Exam: Alert, Awake Neuro motor strength exam: Left Upper Extremity: 4, Right Upper Extremity: 5, Left Lower Extremity: 3, Right Lower Extremity: 5 Additional comments: left facial droop - Psychiatric Exam Psychiatric exam: Normal Affect, Normal Mood - Skin Skin Exam: Dry, Normal Color, Warm Assessment and Plan (1) Acute CVA (cerebrovascular accident) Status: Acute (2) Hypertensive emergency Status: Acute (3) MARIANELA (acute kidney injury) Status: Acute (4) DVT prophylaxis Status: Acute - Assessment and Plan (Free Text) Assessment: 46y/o gent with hx of HTN, brought in bec of left facial droop and left sided weakness w/c started 12 hours prior to presentation. BP also noted to be uncontrolled with systolic in the 200's. MRI of Brain: acute subacute CVA right external capsule (1) Acute CVA (cerebrovascular accident) Status: Acute cont ASA, statin Neuro consult: Dr Haney MRA of brain : neg Carotid Sono: neg stenosis (2) Hypertensive emergency Status: Acute Pt was initially started on Cardene drip allow for permissive HTN for acute CVA cont Metoprolol (3) MARIANELA (acute kidney injury) Status: Acute unknown if pt has KD stage III may be due to uncontrolled HTN monitor Crea Crea=2.1 (4) DVT prophylaxis Status: Acute Lovenox
--- NOTE | 2017-01-28 12:24 | US ---
PROCEDURE: Duplex ultrasound of the carotid and vertebral arteries. HISTORY: TIA COMPARISON: None available. TECHNIQUE: Grayscale and duplex Doppler evaluation of the cervical carotid and vertebral arteries were performed. The common carotid, carotid bifurcations and cervical ICA and proximal ECA were evaluated. The vertebral arteries were evaluated for gross patency and direction. FINDINGS: RIGHT CAROTID ARTERIES: Common Carotid Artery: Normal. Maximal flow velocity of 99.9 cm/s. Carotid Bifurcation: Partially calcified heterogeneous plaque Internal Carotid Artery:Heterogeneous plaque formation. Maximal flow velocity of 83.8 cm/s. External Carotid Artery (proximal branches): Normal. Maximal flow velocity of 123.7 cm/s. ICA/CCA Ratio: 0.8 LEFT CAROTID ARTERIES: Common Carotid Artery: Normal. Maximal flow velocity of 118.9 cm/s. Carotid Bifurcation: Partially calcified plaque left common carotid/bulb region. Internal Carotid Artery:Heterogeneous plaque formation. Maximal flow velocity of 60.7 cm/s. External Carotid Artery (proximal branches): Normal. Maximal flow velocity of 19.2 cm/s. ICA/CCA Ratio: 0.5 VERTEBRAL ARTERIES: Right Vertebral Artery: Patent. Antegrade flow. Left Vertebral Artery: Patent. Antegrade flow. OTHER FINDINGS: None. IMPRESSION: Right ICA degree of stenosis: Less than 50% Left ICA degree of stenosis: Less than 50% Reference Internal Carotid Artery (ICA) Peak Systolic Velocity (PSV) for above: 1. Less than 50% stenosis less than 125 cm/s peak systolic velocity 2. 50-69% stenosis 125-230cm/s peak systolic velocity 3. Greater than 70% but less than near occlusion greater than 230 cm/s peak systolic velocity
--- NOTE | 2017-01-28 17:19 | CP.CCUPN ---
CCU Subjective - Physician Review Events Since Last Encounter (Free Text): 01/28/17 The patient was Seen/interviewed and examined by me at the bedside during ICU round, Medical records reviewed and Management issues were discussed and formulated with the house staff. Clinically and neurologically stable Awake, comfortable, NAD Pt AAO x3. Alert, follows commands Denies any chest pain, SOB or Palpitaions Afebrile CCU Objective - Vital Signs / Intake & Output Vital Signs (Last 4 hours): Vital Signs Temp Pulse Resp BP Pulse Ox 01/28/17 16:00 98.2 F 68 15 165/98 H 100 01/28/17 15:00 80 18 174/104 H 99 01/28/17 14:00 78 18 177/113 H 99 Intake and Output (Last 8hrs): Intake & Output 01/28/17 01/28/17 01/28/17 06:59 14:59 22:59 Intake Total 300 405 125 Output Total 350 400 450 Balance -50 5 -325 Intake: IV 300 165 125 Oral 240 Output: Urine 350 400 450 Urine, Voided 350 400 450 Other: # Voids Urine, Voided 1 0 - Physical Exam Head: Positive for: Normocephalic Pupils: Positive for: PERRL Extroacular Muscles: Positive for: EOMI Conjunctiva: Positive for: Normal Mouth: Positive for: Moist Mucous Membranes Neck: Positive for: Normal Range of Motion. Negative for: Meningeal Signs, JVD Respiratory/Chest: Positive for: Clear to Auscultation. Negative for: Accessory Muscle Use, Wheezes Cardiovascular: Positive for: Regular Rate and Rhythm, Normal S1, S2. Negative for: Murmurs, Rub Abdomen: Positive for: Normal Bowel Sounds. Negative for: Tenderness, Distention, Mass/Organomegaly Lower Extremity: Positive for: Normal Inspection, NORMAL PULSES. Negative for: Edema, CALF TENDERNESS, Cyanosis Neurological: Positive for: GCS=15, Other (Left Hemiparesis: motor 3-4/5 left upper worse than LLE). Negative for: Speech Normal Psychiatric: Positive for: Alert, Oriented x 3, Normal Affect - Medications Active Medications: Active Medications Generic Name Dose Route Start Last Admin Trade Name Freq PRN Reason Stop Dose Admin Acetaminophen 650 mg 01/27/17 01:50 Tylenol 325mg Tab PO Q6H PRN Pain, Mild (1-3) Aspirin 325 mg 01/28/17 09:00 01/28/17 11:24 Aspirin PO 325 mg DAILY EVE Administration Atorvastatin Calcium 80 mg 01/28/17 09:00 01/28/17 12:24 Lipitor PO 80 mg DAILY EVE Administration Enoxaparin Sodium 40 mg 01/28/17 09:00 01/28/17 12:25 Lovenox SC 40 mg DAILY EVE Administration Protocol Labetalol HCl 20 mg 01/27/17 08:37 01/27/17 16:46 Trandate IVP 20 mg Q4 PRN Administration Systolic Blood Pressure Metoprolol Succinate 50 mg 01/27/17 09:00 01/28/17 11:19 Toprol Xl PO 50 mg DAILY EVE Administration Ondansetron HCl 4 mg 01/27/17 01:50 Zofran Inj IVP Q6H PRN Nausea/Vomiting Pantoprazole Sodium 40 mg 01/27/17 09:00 01/28/17 11:18 Protonix Inj IVP 40 mg DAILY EVE Administration - Patient Studies Lab Studies: Lab Studies 01/28/17 01/28/17 01/27/17 Range/Units 04:25 04:25 18:05 WBC 8.8 (4.8-10.8) K/uL RBC 4.40 (4.40-5.90) Mil/uL Hgb 13.5 (12.0-18.0) g/dL Hct 39.5 (35.0-51.0) % MCV 90.0 (80.0-94.0) fl MCH 30.7 (27.0-31.0) pg MCHC 34.2 (33.0-37.0) g/dL RDW 13.6 (11.5-14.5) % Plt Count 123 L (130-400) K/uL Sodium 143 (132-148) mmol/l Potassium 3.7 (3.6-5.0) MMOL/L Chloride 108 H (98-107) mmol/L Carbon Dioxide 22 (22-30) mmol/L Anion Gap 17 (10-20) BUN 28 H (9-20) mg/dl Creatinine 2.1 H (0.8-1.5) mg/dL Est GFR ( Amer) 41 Est GFR (Non-Af Amer) 34 Random Glucose 107 (75-110) mg/dL Hemoglobin A1c (4.2-6.5) % Calcium 9.7 (8.4-10.2) mg/dL Troponin I 0.0260 (0.00-0.120) ng/mL 01/27/17 Range/Units 00:10 WBC (4.8-10.8) K/uL RBC (4.40-5.90) Mil/uL Hgb (12.0-18.0) g/dL Hct (35.0-51.0) % MCV (80.0-94.0) fl MCH (27.0-31.0) pg MCHC (33.0-37.0) g/dL RDW (11.5-14.5) % Plt Count (130-400) K/uL Sodium (132-148) mmol/l Potassium (3.6-5.0) MMOL/L Chloride (98-107) mmol/L Carbon Dioxide (22-30) mmol/L Anion Gap (10-20) BUN (9-20) mg/dl Creatinine (0.8-1.5) mg/dL Est GFR ( Amer) Est GFR (Non-Af Amer) Random Glucose (75-110) mg/dL Hemoglobin A1c 5.3 (4.2-6.5) % Calcium (8.4-10.2) mg/dL Troponin I (0.00-0.120) ng/mL Laboratory Results - last 24 hr 01/27/17 01/27/17 01/28/17 00:10 18:05 04:25 WBC 8.8 RBC 4.40 Hgb 13.5 Hct 39.5 MCV 90.0 MCH 30.7 MCHC 34.2 RDW 13.6 Plt Count 123 L Sodium Potassium Chloride Carbon Dioxide Anion Gap BUN Creatinine Est GFR ( Amer) Est GFR (Non-Af Amer) Random Glucose Hemoglobin A1c 5.3 Calcium Troponin I 0.0260 01/28/17 04:25 WBC RBC Hgb Hct MCV MCH MCHC RDW Plt Count Sodium 143 Potassium 3.7 Chloride 108 H Carbon Dioxide 22 Anion Gap 17 BUN 28 H Creatinine 2.1 H Est GFR ( Amer) 41 Est GFR (Non-Af Amer) 34 Random Glucose 107 Hemoglobin A1c Calcium 9.7 Troponin I Fingerstick Blood Sugar Results: 120 Critical Care Progress Note - Nutrition Nutrition: Nutrition Category Date Time Status Heart Healthy Diet [DIET] Diets 01/27/17 Breakfast Active Assessment/Plan (1) Acute CVA (cerebrovascular accident) Current Visit: Yes Status: Acute Comment: ASA, statins Frequent Neuro check Pllow permissive hypertension MRI of Brain: acute subacute CVA right external capsule Speech and swallow evaluation (2) Hypertensive emergency Current Visit: Yes Status: Acute Comment: Restarted on Metoprolol Succinate (Toprol Xl) 50 mg PO DAILY Wean off Cardene drip PRN Labetalol monitor Blood pressures (3) MARIANELA (acute kidney injury) Current Visit: Yes Status: Acute Comment: In the sitting of uncontolled HTN BP control Renaly adjust medication dose (4) DVT prophylaxis Current Visit: Yes Status: Acute Comment: Enoxaparin Sodium (Lovenox) 40 mg SC DAILY
[2017-01-29] MEDS ORDERED: Labetalol 5 mg/ml Inj 20ML ONE (04:20)
[2017-01-29 06:09] LABS: HEMATOCRIT 41.4 % (35.0-51.0); MEAN CELL VOLUME 89.8 fl (80.0-94.0); MEAN CORPUSCULAR HEMOGLOBIN 30.7 pg (27.0-31.0); MEAN CORPUSCULAR HGB CONC 34.2 g/dL (33.0-37.0); RED CELL DISTRIBUTION WIDTH 13.6 % (11.5-14.5); WHITE BLOOD COUNT 10.2 K/uL (4.8-10.8)
[2017-01-29] MEDS ORDERED: Metoprolol Succinate 50 mg XL Tab PO STA (06:20)
[2017-01-29 06:26] LABS: CALCIUM 9.4 mg/dL (8.4-10.2); POTASSIUM 3.8 MMOL/L (3.6-5.0)
[2017-01-29] MEDS: Enoxaparin 40 mg Syringe SC SCH (09:15)
[2017-01-29] MEDS: Metoprolol Succinate 50 mg XL Tab PO SCH (10:10)
[2017-01-29] MEDS: Pantoprazole 40 mg EC Tab PO SCH (10:27)
--- NOTE | 2017-01-29 11:24 | CP.PCM.PN ---
Subjective - Date & Time of Evaluation Date of Evaluation: 01/29/17 Time of Evaluation: 10:30 - Subjective Subjective: No fever feels better feels that the left sided weakness is sl better today no CP no SOB no abd pain Objective - Vital Signs/Intake and Output Vital Signs (last 24 hours): Temp Pulse Resp BP Pulse Ox 98.5 F 71 20 181/133 H 100 01/29/17 08:00 01/29/17 10:26 01/29/17 08:00 01/29/17 10:26 01/29/17 08:00 Intake and Output: 01/29/17 01/29/17 06:59 18:59 Intake Total 275 Output Total 400 Balance -125 - Medications Medications: Current Medications Acetaminophen (Tylenol 325mg Tab) 650 mg PO Q6H PRN PRN Reason: Pain, Mild (1-3) Aspirin (Aspirin) 325 mg PO DAILY [facility] Last Admin: 01/29/17 10:09 Dose: 325 mg Atorvastatin Calcium (Lipitor) 80 mg PO DAILY [facility] Last Admin: 01/29/17 09:10 Dose: 80 mg Enoxaparin Sodium (Lovenox) 40 mg SC DAILY [facility] PRN Reason: Protocol Last Admin: 01/29/17 09:15 Dose: 40 mg Labetalol HCl (Trandate) 20 mg IVP Q4 PRN PRN Reason: Systolic Blood Pressure Last Admin: 01/27/17 16:46 Dose: 20 mg Lisinopril (Zestril) 10 mg PO DAILY [facility] Last Admin: 01/29/17 10:26 Dose: 10 mg Metoprolol Succinate (Toprol Xl) 50 mg PO DAILY [facility] Last Admin: 01/29/17 10:10 Dose: Not Given Ondansetron HCl (Zofran Inj) 4 mg IVP Q6H PRN PRN Reason: Nausea/Vomiting Pantoprazole Sodium (Protonix Ec Tab) 40 mg PO DAILY [facility] Last Admin: 01/29/17 10:27 Dose: 40 mg - Labs Labs: 01/29/17 04:45 01/29/17 04:45 PT 12.6 Seconds (9.8-13.1) 01/27/17 00:10 INR 1.1 (0.9-1.2) 01/27/17 00:10 APTT 34.3 Seconds (25.6-37.1) 01/27/17 00:10 - Constitutional Appears: No Acute Distress - Head Exam Head Exam: ATRAUMATIC, NORMAL INSPECTION, NORMOCEPHALIC - Eye Exam Eye Exam: EOMI, Normal appearance, PERRL Pupil Exam: NORMAL ACCOMODATION - ENT Exam ENT Exam: Mucous Membranes Moist, Normal External Ear Exam - Neck Exam Neck Exam: Full ROM. absent: Meningismus - Respiratory Exam Respiratory Exam: NORMAL BREATHING PATTERN. absent: Respiratory Distress - Cardiovascular Exam Cardiovascular Exam: REGULAR RHYTHM, +S1, +S2 - GI/Abdominal Exam GI & Abdominal Exam: Soft, Normal Bowel Sounds. absent: Tenderness - Extremities Exam Extremities Exam: Normal Capillary Refill. absent: Calf Tenderness - Back Exam Back Exam: absent: CVA tenderness (L), CVA tenderness (R) - Neurological Exam Neurological Exam: Alert, Awake Neuro motor strength exam: Left Upper Extremity: 4, Right Upper Extremity: 5, Left Lower Extremity: 3, Right Lower Extremity: 5 Additional comments: left facial droop - Psychiatric Exam Psychiatric exam: Normal Affect, Normal Mood - Skin Skin Exam: Dry, Normal Color, Warm Assessment and Plan (1) Acute CVA (cerebrovascular accident) Status: Acute (2) Hypertensive emergency Status: Acute (3) MARIANELA (acute kidney injury) Status: Acute (4) DVT prophylaxis Status: Acute - Assessment and Plan (Free Text) Assessment: 46y/o gent with hx of HTN, brought in bec of left facial droop and left sided weakness w/c started 12 hours prior to presentation. BP also noted to be uncontrolled with systolic in the 200's. MRI of Brain: acute subacute CVA right external capsule (1) Acute CVA (cerebrovascular accident) Status: Acute cont ASA, statin Neuro consult: Dr Haney MRA of brain : neg Carotid Sono: neg stenosis (2) Hypertensive emergency Status: Acute Pt was initially allowed permissive HTN for acute CVA Metoprolol increase dose to 75mg daily add Norvasc 10 mg daily (3) MARIANELA (acute kidney injury) Status: Acute unknown if pt has CKD stage III may be due to uncontrolled HTN monitor Crea Crea=2.1 (4) DVT prophylaxis Status: Acute Lovenox
--- NOTE | 2017-01-29 11:26 | CARD ---
APPROVED REPORT EXAM: Two-dimensional and M-mode echocardiogram with Doppler and color Doppler. Other Information Quality : GoodRhythm : NSR INDICATION CVA/TIA 2D DIMENSIONS IVSd1.42 (0.7-1.1cm)LVDd4.73 (3.9-5.9cm) LVOT Diameter2.29 (1.8-2.4cm)PWd1.64 (0.7-1.1cm) IVSs1.78 (0.8-1.2cm)LVDs4.01 (2.5-4.0cm) FS (%) 15.3 %PWs1.93 (0.8-1.2cm) M-Mode DIMENSIONS Left Atrium (MM)3.50 (2.5-4.0cm)IVSd1.65 (0.7-1.1cm) Aortic Root3.32 (2.2-3.7cm)LVDd5.06 (4.0-5.6cm) Aortic Cusp Exc.1.91 (1.5-2.0cm)PWd1.44 (0.7-1.1cm) IVSs1.91 cmFS (%) 24 % LVDs3.85 (2.0-3.8cm)PWs1.56 cm Mitral Valve MV E Txnentqx23.6cm/sMV DECEL [id number] A Yocfcutv72.8cm/s MV YVX87thT/A ratio0.5MVA (PHT)3.66cm2 TDI Lateral E' Peak V7.01cm/sMedial E' Peak V4.24cm/sE/Lateral E'5.4 E/Medial E'8.9 Pulmonary Valve PV Peak Nnodrsyr67.8cm/s LEFT VENTRICLE The left ventricle is normal size. There is moderate concentric left ventricular hypertrophy. The systolic function is moderately impaired. The Ejection Fraction is 30-35%. There is global hypokinesis of the left ventricle. The left ventricular diastolic function is normal. No left ventricle thrombus noted on this study. There is no mass noted in the left ventricle. RIGHT VENTRICLE The right ventricle is normal size. There is normal right ventricular wall thickness. The right ventricular systolic function is normal. ATRIA The left atrium size is normal. The right atrium size is normal. The interatrial septum is intact with no evidence for an atrial septal defect. AORTIC VALVE The aortic valve is normal in structure and function. No aortic regurgitation is present. There is no aortic valvular stenosis. There is no aortic valvular vegetation. MITRAL VALVE The mitral valve is normal in structure and function. There is no evidence of mitral valve prolapse. There is no mitral valve stenosis. Mitral regurgitation is mild. TRICUSPID VALVE The tricuspid valve is normal in structure and function. There is no tricuspid valve regurgitation noted. There is no tricuspid valve prolapse or vegetation. There is no tricuspid valve stenosis. PULMONIC VALVE The pulmonary valve is normal in structure and function. There is no pulmonic valvular regurgitation. There is no pulmonic valvular stenosis. GREAT VESSELS The aortic root is normal in size. The IVC is normal in size and collapses >50% with inspiration. PERICARDIAL EFFUSION The pericardium appears normal. There is no pleural effusion. <Conclusion> The left ventricle is normal size. There is moderate concentric left ventricular hypertrophy. The systolic function is moderately impaired. The Ejection Fraction is 30-35%. There is global hypokinesis of the left ventricle. Mitral regurgitation is mild.
--- NOTE | 2017-01-29 11:47 | CP.CCUPN ---
<Fred Luque - Last Filed: 01/29/17 11:44> CCU Subjective - Physician Review Subjective (Free Text): 01/29/17 11:44 Patient seen and examined at bedside. Patient NAD, denies pain, has no complaints. Patient still reports left sided weakness but reports that it is improved. Patient sitting in bed comfortably and is tolerating PO without issues. Patient denies headaches, chest pain, SOB, nausea, vomiting, and abdominal pain. Critical Care Time Spent (in minutes): 35 CCU Objective - Vital Signs / Intake & Output Vital Signs (Last 4 hours): Vital Signs Temp Pulse Resp BP Pulse Ox 01/29/17 10:26 71 181/133 H 01/29/17 08:00 98.5 F 73 20 187/119 H 100 Intake and Output (Last 8hrs): Intake & Output 01/28/17 01/29/17 01/29/17 22:59 06:59 14:59 Intake Total 355 50 Output Total 850 200 Balance -495 -150 Intake: IV 355 50 Output: Urine 850 200 Urine, Voided 850 200 Other: # Voids Urine, Voided 1 1 - Physical Exam Head: Positive for: Normocephalic Pupils: Positive for: PERRL Extroacular Muscles: Positive for: EOMI Conjunctiva: Positive for: Normal Mouth: Positive for: Moist Mucous Membranes Neck: Positive for: Normal Range of Motion. Negative for: Meningeal Signs, JVD Respiratory/Chest: Positive for: Clear to Auscultation. Negative for: Accessory Muscle Use, Wheezes Cardiovascular: Positive for: Regular Rate and Rhythm, Normal S1, S2. Negative for: Murmurs, Rub Abdomen: Positive for: Normal Bowel Sounds. Negative for: Tenderness, Distention, Mass/Organomegaly Lower Extremity: Positive for: Normal Inspection, NORMAL PULSES. Negative for: Edema, CALF TENDERNESS, Cyanosis Neurological: Positive for: GCS=15, Other (Left Hemiparesis: motor 3-4/5 left upper worse than LLE, left sided lower facial droop). Negative for: Speech Normal Psychiatric: Positive for: Alert, Oriented x 3, Normal Affect - Medications Active Medications: Active Medications Generic Name Dose Route Start Last Admin Trade Name Freq PRN Reason Stop Dose Admin Acetaminophen 650 mg 01/27/17 01:50 Tylenol 325mg Tab PO Q6H PRN Pain, Mild (1-3) Aspirin 325 mg 01/28/17 09:00 01/29/17 10:09 Aspirin PO 325 mg DAILY EVE Administration Atorvastatin Calcium 80 mg 01/28/17 09:00 01/29/17 09:10 Lipitor PO 80 mg DAILY EVE Administration Enoxaparin Sodium 40 mg 01/28/17 09:00 01/29/17 09:15 Lovenox SC 40 mg DAILY EVE Administration Protocol Labetalol HCl 20 mg 01/27/17 08:37 01/27/17 16:46 Trandate IVP 20 mg Q4 PRN Administration Systolic Blood Pressure Lisinopril 10 mg 01/29/17 10:15 01/29/17 10:26 Zestril PO 10 mg DAILY EVE Administration Metoprolol Succinate 50 mg 01/27/17 09:00 01/29/17 10:10 Toprol Xl PO Not Given DAILY EVE Ondansetron HCl 4 mg 01/27/17 01:50 Zofran Inj IVP Q6H PRN Nausea/Vomiting Pantoprazole Sodium 40 mg 01/30/17 09:00 01/29/17 10:27 Protonix Ec Tab PO 40 mg DAILY EVE Administration - Patient Studies Lab Studies: Microbiology Studies 01/27/17 09:50 MRSA Culture (Admit) - Final Naris MRSA NOT DETECTED Lab Studies 01/29/17 01/29/17 Range/Units 04:45 04:45 WBC 10.2 (4.8-10.8) K/uL RBC 4.61 (4.40-5.90) Mil/uL Hgb 14.2 (12.0-18.0) g/dL Hct 41.4 (35.0-51.0) % MCV 89.8 (80.0-94.0) fl MCH 30.7 (27.0-31.0) pg MCHC 34.2 (33.0-37.0) g/dL RDW 13.6 (11.5-14.5) % Plt Count 130 (130-400) K/uL Sodium 143 (132-148) mmol/l Potassium 3.8 (3.6-5.0) MMOL/L Chloride 108 H (98-107) mmol/L Carbon Dioxide 22 (22-30) mmol/L Anion Gap 17 (10-20) BUN 30 H (9-20) mg/dl Creatinine 2.1 H (0.8-1.5) mg/dL Est GFR ( Amer) 41 Est GFR (Non-Af Amer) 34 Random Glucose 99 (75-110) mg/dL Calcium 9.4 (8.4-10.2) mg/dL Laboratory Results - last 24 hr 01/29/17 01/29/17 04:45 04:45 WBC 10.2 RBC 4.61 Hgb 14.2 Hct 41.4 MCV 89.8 MCH 30.7 MCHC 34.2 RDW 13.6 Plt Count 130 Sodium 143 Potassium 3.8 Chloride 108 H Carbon Dioxide 22 Anion Gap 17 BUN 30 H Creatinine 2.1 H Est GFR ( Amer) 41 Est GFR (Non-Af Amer) 34 Random Glucose 99 Calcium 9.4 Fingerstick Blood Sugar Results: 120 Review of Systems - Constitutional Constitutional: Weakness. absent: Fever - EENT Eyes: absent: Blurred Vision Ears: absent: Tinnitus, Dizziness - Cardiovascular Cardiovascular: absent: Chest Pain, Diaphoresis, Dyspnea, Orthopnea - Respiratory Respiratory: absent: Dyspnea - Gastrointestinal Gastrointestinal: absent: Abdominal Pain, Nausea, Vomiting - Genitourinary Genitourinary: absent: Dysuria - Integumentary Integumentary: absent: Rash - Neurological Neurological: Abnormal Speech, Weakness. absent: Dizziness, Headaches Critical Care Progress Note - Nutrition Nutrition: Nutrition Category Date Time Status Heart Healthy Diet [DIET] Diets 01/27/17 Breakfast Active Assessment/Plan - Assessment and Plan (Free Text) Assessment: 46 y/o man w/ pmh of HTN (on Lopressor and daily baby ASA) presents w/ numbness , slurred speech, LUE and LLE numbness, and dizziness. Patient is in ICU for hypertensive emergency with acute CVA. Plan: Acute CVA - patient continues to have LUE/LLE weakness and numbness with abnormal speech which have both improved - head MRA: unremarkable study - brain MRI: CVA in right external capsule - Neuro check Q2h - begin increased control of hypertension as patient has passed 24 hour s/p CVA - asprin 325 mg Po daily - atorvastatin 80 mg PO daily - Neurology, Dr. Haney, recommendations appreciated - PT to see patient this afternoon once BP is stable - Speech and swallow recommendations appreciated Hypertensive Emergency - BP on presentation 222/148 mm Hg w/ dizziness. numbness, and weakness - current BP 174/111 mm Hg - DC'ed jr drip - c/w home med metoprolol succinate 50 mg PO daily - restart home med lisinopril 10 mg PO daily - labetalol 20 mg IV Q4h prn - continue to monitor MARIANELA - uncontrolled HTN in presence of MARIANELA - Cr on presentation 1.9 - Cr today 2.1 - CrCl >30, lisinopril home dose can be continued Prophylactic Measures - tylenol 650 mg PO Q6h prn - lovenox 40 mg SC daily - zofran 4 mg IV Q6h prn - protonix 40 mg PO daily <ZorafPrakash M - Last Filed: 01/29/17 14:53> CCU Objective - Vital Signs / Intake & Output Vital Signs (Last 4 hours): Vital Signs Pulse Resp BP Pulse Ox 01/29/17 14:00 80 16 163/98 H 97 01/29/17 13:00 79 21 173/125 H 97 01/29/17 12:58 81 182/125 H 01/29/17 12:00 82 20 174/111 H 100 01/29/17 11:00 86 13 192/129 H 98 Intake and Output (Last 8hrs): Intake & Output 01/28/17 01/29/17 01/29/17 22:59 06:59 14:59 Intake Total 355 50 500 Output Total 850 200 700 Balance -495 -150 -200 Intake: IV 355 50 0 Oral 500 Output: Urine 850 200 700 Urine, Voided 850 200 700 Other: # Voids Urine, Voided 1 1 - Medications Active Medications: Active Medications Generic Name Dose Route Start Last Admin Trade Name Freq PRN Reason Stop Dose Admin Acetaminophen 650 mg 01/27/17 01:50 Tylenol 325mg Tab PO Q6H PRN Pain, Mild (1-3) Amlodipine Besylate 5 mg 01/29/17 12:45 01/29/17 12:58 Norvasc PO 5 mg DAILY EVE Administration Aspirin 325 mg 01/28/17 09:00 01/29/17 10:09 Aspirin PO 325 mg DAILY EVE Administration Atorvastatin Calcium 80 mg 01/28/17 09:00 01/29/17 09:10 Lipitor PO 80 mg DAILY EVE Administration Enoxaparin Sodium 40 mg 01/28/17 09:00 01/29/17 09:15 Lovenox SC 40 mg DAILY EVE Administration Protocol Labetalol HCl 20 mg 01/27/17 08:37 01/27/17 16:46 Trandate IVP 20 mg Q4 PRN Administration Systolic Blood Pressure Metoprolol Succinate 75 mg 01/30/17 09:00 Toprol Xl PO DAILY EVE Ondansetron HCl 4 mg 01/27/17 01:50 Zofran Inj IVP Q6H PRN Nausea/Vomiting Pantoprazole Sodium 40 mg 01/30/17 09:00 01/29/17 10:27 Protonix Ec Tab PO 40 mg DAILY EVE Administration - Patient Studies Lab Studies: Microbiology Studies 01/27/17 09:50 MRSA Culture (Admit) - Final Naris MRSA NOT DETECTED Lab Studies 01/29/17 01/29/17 Range/Units 04:45 04:45 WBC 10.2 (4.8-10.8) K/uL RBC 4.61 (4.40-5.90) Mil/uL Hgb 14.2 (12.0-18.0) g/dL Hct 41.4 (35.0-51.0) % MCV 89.8 (80.0-94.0) fl MCH 30.7 (27.0-31.0) pg MCHC 34.2 (33.0-37.0) g/dL RDW 13.6 (11.5-14.5) % Plt Count 130 (130-400) K/uL Sodium 143 (132-148) mmol/l Potassium 3.8 (3.6-5.0) MMOL/L Chloride 108 H (98-107) mmol/L Carbon Dioxide 22 (22-30) mmol/L Anion Gap 17 (10-20) BUN 30 H (9-20) mg/dl Creatinine 2.1 H (0.8-1.5) mg/dL Est GFR ( Amer) 41 Est GFR (Non-Af Amer) 34 Random Glucose 99 (75-110) mg/dL Calcium 9.4 (8.4-10.2) mg/dL Laboratory Results - last 24 hr 01/29/17 01/29/17 04:45 04:45 WBC 10.2 RBC 4.61 Hgb 14.2 Hct 41.4 MCV 89.8 MCH 30.7 MCHC 34.2 RDW 13.6 Plt Count 130 Sodium 143 Potassium 3.8 Chloride 108 H Carbon Dioxide 22 Anion Gap 17 BUN 30 H Creatinine 2.1 H Est GFR ( Amer) 41 Est GFR (Non-Af Amer) 34 Random Glucose 99 Calcium 9.4 Critical Care Progress Note - Nutrition Nutrition: Nutrition Category Date Time Status Heart Healthy Diet [DIET] Diets 01/27/17 Breakfast Active Assessment/Plan (1) Acute CVA (cerebrovascular accident) Current Visit: Yes Status: Acute Comment: ASA, statins Frequent Neuro check Pllow permissive hypertension MRI of Brain: acute subacute CVA right external capsule Speech and swallow evaluation (2) Hypertensive emergency Current Visit: Yes Status: Acute Comment: Restarted on Metoprolol Succinate (Toprol Xl) 50 mg PO DAILY Wean off Cardene drip PRN Labetalol monitor Blood pressures (3) MARIANELA (acute kidney injury) Current Visit: Yes Status: Acute Comment: In the sitting of uncontolled HTN BP control Renaly adjust medication dose (4) DVT prophylaxis Current Visit: Yes Status: Acute Comment: Enoxaparin Sodium (Lovenox) 40 mg SC DAILY Attending/Attestation - Attestation I have personally seen and examined this patient.: Yes I have fully participated in the care of the patient.: Yes I have reviewed all pertinent clinical information: Yes Notes (Text): 01/29/17 14:50 Today: Sunday, January 29, 2017 The patient was Seen/interviewed and examined by me at the bedside during ICU round, Medical records reviewed and Management issues were discussed and formulated with the house staff. I have reviewed all the relevant clinical, laboratory, hemodynamic, radiographic data and medications Pain issues, skin care, head of the bed elevation, glycemic control were addressed. I concur with resident's assessment and plan of care as transcribed in Dr. Luque note. Start norvasc and incrase toprol XL for BP control, Physical therapy Evaluation
[2017-01-29] MEDS: Labetalol 5 mg/ml Inj 20ML IVP PRN (20:54)
[2017-01-30 05:28] LABS: HEMATOCRIT 41.4 % (35.0-51.0); MEAN CELL VOLUME 90.4 fl (80.0-94.0); MEAN CORPUSCULAR HEMOGLOBIN 30.8 pg (27.0-31.0); MEAN CORPUSCULAR HGB CONC 34.1 g/dL (33.0-37.0); RED CELL DISTRIBUTION WIDTH 13.4 % (11.5-14.5); WHITE BLOOD COUNT 9.1 K/uL (4.8-10.8)
[2017-01-30 05:49] LABS: POTASSIUM 3.9 MMOL/L (3.6-5.0)
[2017-01-30 06:20] LABS: CALCIUM 9.8 mg/dL (8.4-10.2)
[2017-01-30] MEDS: Labetalol 5 mg/ml Inj 20ML IVP PRN (07:34)
[2017-01-30] MEDS: Enoxaparin 40 mg Syringe SC SCH (08:33)
[2017-01-30] MEDS: Pantoprazole 40 mg EC Tab PO SCH (08:33)
[2017-01-30] MEDS ORDERED: Metoprolol Succinate 25 mg XL Tab PO SCH (09:00)
[2017-01-30] MEDS: Metoprolol Succinate 100 mg XL Tab PO SCH (09:44)
--- NOTE | 2017-01-30 11:08 | CP.CCUPN ---
CCU Subjective - Physician Review Subjective (Free Text): Awake and alert, tolerated getting OOB today with Physical therapist assistance , needs 100% help with ambulation. Denies any new weakness, no headaches or dizziness. Given Labetalol 10 mg this Am for BP elevation to 200/110, with resultant BP 170/100 approximately. Other vitals and I/O's reviewed. ROS: No other pertinent negs or positives on 10+ system review. PMSFH: ----All Nursing and physician documentation reviewed to date; no new pertinent info noted relevant to current medical problems. MAJOR PROBLEMS: 1. CVA, r/o R MCA distribution 2. Accelerated HTN 2 #1 3. Azotemia, r/o Dehydration vs CKD / MARIANELA 4. Hyperlipidemia 5. Hyperglycemia, r/o DM II PLAN: 1. All antihypertensive meds reviewed. Would resume ACEi, increase Metoprolol further. Goal for BP now is MAP of 100-110. 2. Watch renal function. 3. ASA, Statin started. 4. Stable for Transfer to [facility] bed. CCU Objective - Vital Signs / Intake & Output Vital Signs (Last 4 hours): Vital Signs Temp Pulse Resp BP Pulse Ox 01/30/17 10:00 78 19 150/95 H 95 01/30/17 09:44 184/96 H 01/30/17 09:00 71 19 173/103 H 97 01/30/17 08:00 98.4 F 72 19 165/101 H 99 01/30/17 07:34 189/119 H Intake and Output (Last 8hrs): Intake & Output 01/29/17 01/30/17 01/30/17 22:59 06:59 14:59 Intake Total 570 0 480 Output Total 400 200 300 Balance 170 -200 180 Intake: IV 0 0 Oral 570 480 Output: Urine 400 200 300 Urine, Voided 400 200 300 Other: # Voids Urine, Voided 1 - Physical Exam Head: Positive for: Normocephalic Pupils: Positive for: PERRL Extroacular Muscles: Positive for: EOMI Conjunctiva: Positive for: Normal Mouth: Positive for: Moist Mucous Membranes Neck: Positive for: Normal Range of Motion. Negative for: Meningeal Signs, JVD Respiratory/Chest: Positive for: Clear to Auscultation. Negative for: Accessory Muscle Use, Wheezes Cardiovascular: Positive for: Regular Rate and Rhythm, Normal S1, S2. Negative for: Murmurs, Rub Abdomen: Positive for: Normal Bowel Sounds. Negative for: Tenderness, Distention, Mass/Organomegaly Lower Extremity: Positive for: Normal Inspection, NORMAL PULSES. Negative for: Edema, CALF TENDERNESS, Cyanosis Neurological: Positive for: GCS=15, Other (Left Hemiparesis: motor 3-4/5 left upper worse than LLE, left sided lower facial droop). Negative for: Speech Normal Psychiatric: Positive for: Alert, Oriented x 3, Normal Affect - Medications Active Medications: Active Medications Generic Name Dose Route Start Last Admin Trade Name Freq PRN Reason Stop Dose Admin Acetaminophen 650 mg 01/27/17 01:50 Tylenol 325mg Tab PO Q6H PRN Pain, Mild (1-3) Amlodipine Besylate 10 mg 01/30/17 09:00 01/30/17 08:33 Norvasc PO 10 mg DAILY EVE Administration Aspirin 325 mg 01/28/17 09:00 01/30/17 08:35 Aspirin PO 325 mg DAILY EVE Administration Atorvastatin Calcium 80 mg 01/28/17 09:00 01/30/17 08:33 Lipitor PO 80 mg DAILY EVE Administration Enoxaparin Sodium 40 mg 01/28/17 09:00 01/30/17 08:33 Lovenox SC 40 mg DAILY EVE Administration Protocol Hydralazine HCl 25 mg 01/30/17 09:00 01/30/17 08:33 Apresoline PO 25 mg QID EVE Administration Labetalol HCl 10 mg 01/29/17 19:16 01/30/17 07:34 Trandate IVP 10 mg Q4 PRN Administration Systolic Blood Pressure Metoprolol Succinate 100 mg 01/30/17 09:00 01/30/17 09:44 Toprol Xl PO 100 mg DAILY EVE Administration Ondansetron HCl 4 mg 01/27/17 01:50 Zofran Inj IVP Q6H PRN Nausea/Vomiting Pantoprazole Sodium 40 mg 01/30/17 09:00 01/30/17 08:33 Protonix Ec Tab PO 40 mg DAILY EVE Administration - Patient Studies Lab Studies: Lab Studies 01/30/17 01/30/17 Range/Units 04:20 04:20 WBC 9.1 (4.8-10.8) K/uL RBC 4.58 (4.40-5.90) Mil/uL Hgb 14.1 (12.0-18.0) g/dL Hct 41.4 (35.0-51.0) % MCV 90.4 (80.0-94.0) fl MCH 30.8 (27.0-31.0) pg MCHC 34.1 (33.0-37.0) g/dL RDW 13.4 (11.5-14.5) % Plt Count 126 L (130-400) K/uL Sodium 144 (132-148) mmol/l Potassium 3.9 (3.6-5.0) MMOL/L Chloride 109 H (98-107) mmol/L Carbon Dioxide 22 (22-30) mmol/L Anion Gap 17 (10-20) BUN 32 H (9-20) mg/dl Creatinine 2.1 H (0.8-1.5) mg/dL Est GFR ( Amer) 41 Est GFR (Non-Af Amer) 34 Random Glucose 93 (75-110) mg/dL Calcium 9.8 (8.4-10.2) mg/dL Laboratory Results - last 24 hr 01/30/17 01/30/17 04:20 04:20 WBC 9.1 RBC 4.58 Hgb 14.1 Hct 41.4 MCV 90.4 MCH 30.8 MCHC 34.1 RDW 13.4 Plt Count 126 L Sodium 144 Potassium 3.9 Chloride 109 H Carbon Dioxide 22 Anion Gap 17 BUN 32 H Creatinine 2.1 H Est GFR ( Amer) 41 Est GFR (Non-Af Amer) 34 Random Glucose 93 Calcium 9.8 Fingerstick Blood Sugar Results: 120 Review of Systems - Review of Systems All systems: reviewed and no additional remarkable complaints except (as above) Critical Care Progress Note - Nutrition Nutrition: Nutrition Category Date Time Status Heart Healthy Diet [DIET] Diets 01/27/17 Breakfast Active
--- NOTE | 2017-01-30 13:52 | CP.PCM.PN ---
Subjective - Date & Time of Evaluation Date of Evaluation: 01/30/17 Time of Evaluation: 10:00 - Subjective Subjective: Pt feels that his left sided weakness is sl bettr today compared tyo yesterday no fever BP very labile no CP no SOB no abd pain awaiting PT eval Objective - Vital Signs/Intake and Output Vital Signs (last 24 hours): Temp Pulse Resp BP Pulse Ox 98.3 F 84 16 163/103 H 98 01/30/17 12:45 01/30/17 12:45 01/30/17 12:45 01/30/17 12:45 01/30/17 12:45 Intake and Output: 01/30/17 01/30/17 06:59 18:59 Intake Total 170 480 Output Total 200 500 Balance -30 -20 - Medications Medications: Current Medications Acetaminophen (Tylenol 325mg Tab) 650 mg PO Q6H PRN PRN Reason: Pain, Mild (1-3) Amlodipine Besylate (Norvasc) 10 mg PO DAILY [facility] Last Admin: 01/30/17 08:33 Dose: 10 mg Aspirin (Aspirin) 325 mg PO DAILY [facility] Last Admin: 01/30/17 08:35 Dose: 325 mg Atorvastatin Calcium (Lipitor) 80 mg PO DAILY [facility] Last Admin: 01/30/17 08:33 Dose: 80 mg Enoxaparin Sodium (Lovenox) 40 mg SC DAILY [facility] PRN Reason: Protocol Last Admin: 01/30/17 08:33 Dose: 40 mg Hydralazine HCl (Apresoline) 25 mg PO QID [facility] Last Admin: 01/30/17 12:14 Dose: 25 mg Labetalol HCl (Trandate) 10 mg IVP Q4 PRN PRN Reason: Systolic Blood Pressure Last Admin: 01/30/17 07:34 Dose: 10 mg Metoprolol Succinate (Toprol Xl) 100 mg PO DAILY [facility] Last Admin: 01/30/17 09:44 Dose: 100 mg Ondansetron HCl (Zofran Inj) 4 mg IVP Q6H PRN PRN Reason: Nausea/Vomiting Pantoprazole Sodium (Protonix Ec Tab) 40 mg PO DAILY [facility] Last Admin: 01/30/17 08:33 Dose: 40 mg - Labs Labs: 01/30/17 04:20 01/30/17 04:20 PT 12.6 Seconds (9.8-13.1) 01/27/17 00:10 INR 1.1 (0.9-1.2) 01/27/17 00:10 APTT 34.3 Seconds (25.6-37.1) 01/27/17 00:10 - Constitutional Appears: No Acute Distress - Head Exam Head Exam: ATRAUMATIC, NORMAL INSPECTION, NORMOCEPHALIC - Eye Exam Eye Exam: EOMI, Normal appearance, PERRL Pupil Exam: NORMAL ACCOMODATION - ENT Exam ENT Exam: Mucous Membranes Moist, Normal External Ear Exam - Neck Exam Neck Exam: Full ROM. absent: Meningismus - Respiratory Exam Respiratory Exam: NORMAL BREATHING PATTERN. absent: Respiratory Distress - Cardiovascular Exam Cardiovascular Exam: REGULAR RHYTHM, +S1, +S2 - GI/Abdominal Exam GI & Abdominal Exam: Soft, Normal Bowel Sounds. absent: Tenderness - Extremities Exam Extremities Exam: Normal Capillary Refill. absent: Calf Tenderness - Back Exam Back Exam: absent: CVA tenderness (L), CVA tenderness (R) - Neurological Exam Neurological Exam: Alert, Awake Neuro motor strength exam: Left Upper Extremity: 4, Right Upper Extremity: 5, Left Lower Extremity: 3, Right Lower Extremity: 5 Additional comments: left facial droop - Psychiatric Exam Psychiatric exam: Normal Affect, Normal Mood - Skin Skin Exam: Dry, Normal Color, Warm Assessment and Plan (1) Acute CVA (cerebrovascular accident) Status: Acute (2) Hypertensive emergency Status: Acute (3) MARIANELA (acute kidney injury) Status: Acute (4) DVT prophylaxis Status: Acute - Assessment and Plan (Free Text) Assessment: 46y/o gent with hx of HTN, brought in bec of left facial droop and left sided weakness w/c started 12 hours prior to presentation. BP also noted to be uncontrolled with systolic in the 200's. MRI of Brain: acute subacute CVA right external capsule (1) Acute CVA (cerebrovascular accident) Status: Acute cont ASA, statin Neuro consult: Dr Haney MRA of brain : neg Carotid Sono: neg stenosis PT/OT consulted- rec Acute Rehab, await placement (2) Hypertensive emergency Status: Acute Pt came in with BP 200 systolic Pt was initially allowed permissive HTN for acute CVA slowly decrease BP- will aim to keep BP about 150-160 systolic for now cont Metoprolol, Norvasc was added (3) MARIANELA (acute kidney injury) Status: Acute unknown if pt has CKD stage III may be due to uncontrolled HTN monitor Crea Crea=2.1 stable (4) DVT prophylaxis Status: Acute Lovenox
[2017-01-31] MEDS: Labetalol 5 mg/ml Inj 20ML IVP PRN (04:47)
[2017-01-31] MEDS: Pantoprazole 40 mg EC Tab PO SCH (08:01)
[2017-01-31] MEDS: Metoprolol Succinate 100 mg XL Tab PO SCH (08:01)
[2017-01-31] MEDS: Enoxaparin 40 mg Syringe SC SCH (09:30)
--- NOTE | 2017-01-31 11:19 | CP.PCM.PN ---
Subjective - Date & Time of Evaluation Date of Evaluation: 01/31/17 Time of Evaluation: 14:00 - Subjective Subjective: Patient seen and examined bedside. Feeling better . Still with LUE weakness BP labile , afebrile No acute issues overnight Objective - Vital Signs/Intake and Output Vital Signs (last 24 hours): Temp Pulse Resp BP Pulse Ox 98.1 F 78 18 179/116 H 98 01/31/17 08:00 01/31/17 08:01 01/31/17 08:00 01/31/17 08:01 01/31/17 08:00 - Medications Medications: Current Medications Acetaminophen (Tylenol 325mg Tab) 650 mg PO Q6H PRN PRN Reason: Pain, Mild (1-3) Amlodipine Besylate (Norvasc) 10 mg PO DAILY [facility] Last Admin: 01/31/17 08:00 Dose: 10 mg Aspirin (Aspirin) 325 mg PO DAILY [facility] Last Admin: 01/31/17 09:34 Dose: 325 mg Atorvastatin Calcium (Lipitor) 80 mg PO DAILY [facility] Last Admin: 01/31/17 08:02 Dose: 80 mg Enoxaparin Sodium (Lovenox) 40 mg SC DAILY [facility] PRN Reason: Protocol Last Admin: 01/31/17 09:30 Dose: 40 mg Hydralazine HCl (Apresoline) 25 mg PO QID [facility] Last Admin: 01/31/17 08:01 Dose: 25 mg Labetalol HCl (Trandate) 10 mg IVP Q4 PRN PRN Reason: Systolic Blood Pressure Last Admin: 01/31/17 04:47 Dose: 10 mg Metoprolol Succinate (Toprol Xl) 100 mg PO DAILY [facility] Last Admin: 01/31/17 08:01 Dose: 100 mg Ondansetron HCl (Zofran Inj) 4 mg IVP Q6H PRN PRN Reason: Nausea/Vomiting Pantoprazole Sodium (Protonix Ec Tab) 40 mg PO DAILY [facility] Last Admin: 01/31/17 08:01 Dose: 40 mg - Labs Labs: 01/30/17 04:20 01/30/17 04:20 PT 12.6 Seconds (9.8-13.1) 01/27/17 00:10 INR 1.1 (0.9-1.2) 01/27/17 00:10 APTT 34.3 Seconds (25.6-37.1) 01/27/17 00:10 - Constitutional Appears: Non-toxic, No Acute Distress - Head Exam Head Exam: ATRAUMATIC, NORMAL INSPECTION, NORMOCEPHALIC - Eye Exam Eye Exam: EOMI Pupil Exam: NORMAL ACCOMODATION - ENT Exam ENT Exam: Mucous Membranes Moist, Normal Exam - Neck Exam Neck Exam: Full ROM, Normal Inspection - Respiratory Exam Respiratory Exam: Clear to Ausculation Bilateral, NORMAL BREATHING PATTERN. absent: Rales, Rhonchi, Wheezes - Cardiovascular Exam Cardiovascular Exam: REGULAR RHYTHM, RRR, +S1, +S2. absent: JVD - GI/Abdominal Exam GI & Abdominal Exam: Soft, Normal Bowel Sounds. absent: Distended, Guarding, Tenderness, Rebound - Rectal Exam Rectal Exam: Deferred - Extremities Exam Extremities Exam: Full ROM, Normal Capillary Refill, Normal Inspection. absent : Calf Tenderness, Pedal Edema - Back Exam Back Exam: vertebral tenderness - Neurological Exam Neurological Exam: Alert, Awake, CN II-XII Intact, Oriented x3 Neuro motor strength exam: Left Upper Extremity: 3, Right Upper Extremity: 5, Left Lower Extremity: 4, Right Lower Extremity: 5 - Psychiatric Exam Psychiatric exam: Normal Affect - Skin Skin Exam: Dry, Intact, Normal Color, Warm Assessment and Plan - Assessment and Plan (Free Text) Assessment: 46 y/o gent with hx of HTN, brought in bec of left facial droop and left sided weakness w/c started 12 hours prior to presentation. BP also noted to be uncontrolled with systolic in the 200's. MRI of Brain: acute subacute CVA right external capsule Patient now in telemetry for monitoring PT and BP control 1. Acute CVA (cerebrovascular accident) Acute with left side weakness and left foot droop cont ASA, statin and BP control Neuro consult with Dr Haney appreciated MRA of brain : neg Carotid Sono: neg stenosis PT/OT consult appreciated and recommended Acute Reha vs TCU await placement Continue PT in house for now. Start electrical stimulation to LLE 2. Hypertensive emergency Acute Pt came in with BP 200 systolic Pt was initially allowed permissive HTN for acute CVA cont Metoprolol, Norvasc and hydralazine Start more strict BP control . increase hydralazine 50 mg po QID today 3. MARIANELA (acute kidney injury) Acute unknown if pt has CKD stage III may be due to uncontrolled HTN Cr 2.1 Renal US , urine lytes, renal consult 4. Compensated CHF , most likely systolic dysfunction EF 30-35 % with global hypokinesis Started BP control, Statin Will need cardio eval for stress test once stable. Follow up Echo in 6 months 5. Thromobocytopenia unclear etiology monitor for now 6. DVT prophylaxis Acute Lovenox
[2017-02-01 06:16] LABS: HEMATOCRIT 42.2 % (35.0-51.0); MEAN CORPUSCULAR HEMOGLOBIN 31.1 pg (27.0-31.0); MEAN CORPUSCULAR HGB CONC 33.8 g/dL (33.0-37.0); RED CELL DISTRIBUTION WIDTH 13.7 % (11.5-14.5); WHITE BLOOD COUNT 10.7 K/uL (4.8-10.8)
[2017-02-01 07:28] LABS: CALCIUM 9.5 mg/dL (8.4-10.2)
[2017-02-01] MEDS: Metoprolol Succinate 100 mg XL Tab PO SCH (09:02)
[2017-02-01] MEDS: Pantoprazole 40 mg EC Tab PO SCH (09:02)
[2017-02-01] MEDS: Enoxaparin 40 mg Syringe SC SCH (09:04)
--- NOTE | 2017-02-01 09:43 | US ---
PROCEDURE: Ultrasound of the Kidneys HISTORY: r/o medical renal disease COMPARISON: None available. TECHNIQUE: Sonogram of the kidneys. FINDINGS: RIGHT KIDNEY: Measures: 10.0 x 3.8 x 3.2 cm. The renal parenchyma is echogenic suggesting intrinsic medical renal disease. Clinically correlate further. Right kidney appears normal in size. No stone, solid mass lesion or hydronephrosis visualized. LEFT KIDNEY: Measures: 10.3 x 4.0 x 3.6 cm. The renal parenchyma is echogenic suggesting intrinsic medical renal disease. Clinically correlate further. Left kidney appears normal in size. No stone, solid mass lesion or hydronephrosis visualized. OTHER FINDINGS: None. IMPRESSION: Echogenic renal parenchyma is identified bilaterally suggesting intrinsic medical renal disease. No obstructive uropathy bilaterally.
--- NOTE | 2017-02-01 12:48 | CP.PCM.CON ---
History of Present Illness - History of Present Illness History of Present Illness: Patient is a 46 years old I was called to see him for abnormal kidney function. Patient has long history of hypertension and he came to the emergency room with weakness of the left upper and lower extremity and was diagnosed to have what appeared to be ischemic stroke. Patient told me never seen a doctor in this country [place] since 2006 for hypertension however he is taking metoprolol from his country for hypertension Is not aware of kidney problem obviously no test has ever been done on this patient according to him Review of Systems - Constitutional Constitutional: As Per HPI. absent: Chills - EENT Eyes: As Per HPI Nose/Mouth/Throat: absent: Nasal Congestion - Cardiovascular Cardiovascular: absent: Chest Pain, Chest Pain at Rest, Dyspnea - Respiratory Respiratory: absent: Cough, Dyspnea - Gastrointestinal Gastrointestinal: absent: Abdominal Pain, Bloating, Coffee Ground Emesis - Genitourinary Genitourinary: Nocturia - Musculoskeletal Musculoskeletal: As Per HPI, Muscle Weakness - Neurological Neurological: As Per HPI - Endocrine Endocrine: As Per HPI Past Patient History - Tetanus Immunizations Tetanus Immunization: Unknown - Past Medical History & Family History Past Medical History?: Yes - Past Social History Smoking Status: Never Smoked Alcohol: None Drugs: Denies - CARDIAC Hx Cardiac Disorders: No Hx Angina: No Hx Atrial Fibrillation: No Hx Cardia Arrhythmia: No Hx Circulatory Problems: No Hx Congestive Heart Failure: No Hx Hypertension: Yes - PULMONARY Hx Respiratory Disorders: No Hx Asthma: No Hx Bronchitis: No Hx Chronic Obstructive Pulmonary Disease (COPD): No Hx Lung Cancer: No Hx Sleep Apnea: No - NEUROLOGICAL Hx Neurological Disorder: No HX Cerebrovascular Accident: No Hx Seizures: No Hx Transient Ischemic Attacks (TIA): No - HEENT Hx HEENT Problems: No - RENAL Hx Chronic Kidney Disease: No Hx Renal Failure: No - ENDOCRINE/METABOLIC Hx Endocrine Disorders: No Hx Diabetes Mellitus Type 2: No - HEMATOLOGICAL/ONCOLOGICAL Hx Cancer: No Hx Cirrhosis: No Hx Hepatitis A: No Hx Hepatitis B: No Hx Hepatitis C: No - INTEGUMENTARY Hx Dermatological Problems: No Hx Eczema: No Hx Melanoma: No - MUSCULOSKELETAL/RHEUMATOLOGICAL Hx Musculoskeletal Disorders: No Hx Arthritis: No Hx Fractures: No - GASTROINTESTINAL Hx Gastrointestinal Disorders: No - GENITOURINARY/GYNECOLOGICAL Hx Genitourinary Disorders: No - PSYCHIATRIC Hx Psychophysiologic Disorder: No Hx Substance Use: No - SURGICAL HISTORY Hx Surgeries: No - ANESTHESIA Hx Anesthesia: No Meds Allergies/Adverse Reactions: Allergies Allergy/AdvReac Type Severity Reaction Status Date / Time No Known Allergies Allergy Verified 01/26/17 23:50 - Medications Medications: Current Medications Acetaminophen (Tylenol 325mg Tab) 650 mg PO Q6H PRN PRN Reason: Pain, Mild (1-3) Amlodipine Besylate (Norvasc) 10 mg PO DAILY [facility] Last Admin: 02/01/17 09:02 Dose: 10 mg Aspirin (Aspirin) 325 mg PO DAILY [facility] Last Admin: 02/01/17 09:06 Dose: 325 mg Atorvastatin Calcium (Lipitor) 80 mg PO DAILY [facility] Last Admin: 02/01/17 09:01 Dose: 80 mg Enoxaparin Sodium (Lovenox) 40 mg SC DAILY [facility] PRN Reason: Protocol Last Admin: 02/01/17 09:04 Dose: 40 mg Hydralazine HCl (Apresoline) 50 mg PO Q6 [facility] Last Admin: 02/01/17 09:01 Dose: 50 mg Labetalol HCl (Trandate) 10 mg IVP Q4 PRN PRN Reason: Systolic Blood Pressure Last Admin: 01/31/17 04:47 Dose: 10 mg Metoprolol Succinate (Toprol Xl) 100 mg PO DAILY [facility] Last Admin: 02/01/17 09:02 Dose: 100 mg Ondansetron HCl (Zofran Inj) 4 mg IVP Q6H PRN PRN Reason: Nausea/Vomiting Pantoprazole Sodium (Protonix Ec Tab) 40 mg PO DAILY [facility] Last Admin: 02/01/17 09:02 Dose: 40 mg Physical Exam - Constitutional Appears: No Acute Distress - ENT Exam ENT Exam: Mucous Membranes Moist - Respiratory Exam Respiratory Exam: NORMAL BREATHING PATTERN. absent: Chest Wall Tenderness - Cardiovascular Exam Cardiovascular Exam: REGULAR RHYTHM. absent: JVD, Rubs - GI/Abdominal Exam GI & Abdominal Exam: Normal Bowel Sounds. absent: Guarding - Extremities Exam Extremities exam: Negative for: calf tenderness - Back Exam Back exam: absent: CVA tenderness (L), CVA tenderness (R) - Neurological Exam Neurological exam: Alert Results - Vital Signs Recent Vital Signs: Last Vital Signs Temp 98.2 F 02/01/17 12:37 Pulse 91 H 02/01/17 12:37 Resp 18 02/01/17 12:37 BP 133/86 02/01/17 12:37 Pulse Ox 97 02/01/17 12:37 - Labs Result Diagrams: 02/01/17 04:30 02/01/17 04:30 Labs: Laboratory Results - last 24 hr 02/01/17 02/01/17 04:30 04:30 WBC 10.7 RBC 4.59 Hgb 14.3 Hct 42.2 MCV 92.0 MCH 31.1 H MCHC 33.8 RDW 13.7 Plt Count 146 Sodium 143 Potassium 4.0 Chloride 108 H Carbon Dioxide 19 L Anion Gap 20 BUN 38 H Creatinine 2.2 H Est GFR ( Amer) 39 Est GFR (Non-Af Amer) 32 Random Glucose 90 Calcium 9.5 Assessment & Plan (1) MARIANELA (acute kidney injury) Assessment and Plan: Patient admitted with acute CVA and weakness on the left side then he was fond to have serum creatinine around 2 No previous record of kidney disease in the past Sodium rule out acute kidney injury from hypertension although because of the ultrasound of the kidney showed bilateral echogenic kidney that is consistent with chronic kidney disease? We will order stat urinalysis serum phosphorus serum PTH and protein in the urine And follow-up blood pressure appeared to be better controlled Status: Acute (2) Acute CVA (cerebrovascular accident) Status: Acute
--- NOTE | 2017-02-01 17:25 | CP.PCM.PN ---
Subjective - Date & Time of Evaluation Date of Evaluation: 02/01/17 Time of Evaluation: 13:30 - Subjective Subjective: Patient was seen and evaluated bedside. Feeling better. Still with left side weakness, left foot droop and unstable gait BP better controlled Hemodynamically stable, afebrile No acute issues overnight Objective - Vital Signs/Intake and Output Vital Signs (last 24 hours): Temp Pulse Resp BP Pulse Ox 98.2 F 88 20 144/92 H 97 02/01/17 16:39 02/01/17 16:39 02/01/17 16:39 02/01/17 16:39 02/01/17 16:39 - Medications Medications: Current Medications Acetaminophen (Tylenol 325mg Tab) 650 mg PO Q6H PRN PRN Reason: Pain, Mild (1-3) Amlodipine Besylate (Norvasc) 10 mg PO DAILY [facility] Last Admin: 02/01/17 09:02 Dose: 10 mg Aspirin (Aspirin) 325 mg PO DAILY [facility] Last Admin: 02/01/17 09:06 Dose: 325 mg Atorvastatin Calcium (Lipitor) 80 mg PO DAILY [facility] Last Admin: 02/01/17 09:01 Dose: 80 mg Enoxaparin Sodium (Lovenox) 40 mg SC DAILY [facility] PRN Reason: Protocol Last Admin: 02/01/17 09:04 Dose: 40 mg Hydralazine HCl (Apresoline) 50 mg PO Q6 [facility] Last Admin: 02/01/17 09:01 Dose: 50 mg Labetalol HCl (Trandate) 10 mg IVP Q4 PRN PRN Reason: Systolic Blood Pressure Last Admin: 01/31/17 04:47 Dose: 10 mg Metoprolol Succinate (Toprol Xl) 100 mg PO DAILY [facility] Last Admin: 02/01/17 09:02 Dose: 100 mg Ondansetron HCl (Zofran Inj) 4 mg IVP Q6H PRN PRN Reason: Nausea/Vomiting Pantoprazole Sodium (Protonix Ec Tab) 40 mg PO DAILY [facility] Last Admin: 02/01/17 09:02 Dose: 40 mg - Labs Labs: 02/01/17 04:30 02/01/17 04:30 PT 12.6 Seconds (9.8-13.1) 01/27/17 00:10 INR 1.1 (0.9-1.2) 01/27/17 00:10 APTT 34.3 Seconds (25.6-37.1) 01/27/17 00:10 - Constitutional Appears: Non-toxic, No Acute Distress - Head Exam Head Exam: ATRAUMATIC, NORMAL INSPECTION, NORMOCEPHALIC - Eye Exam Eye Exam: EOMI, Normal appearance, PERRL Pupil Exam: NORMAL ACCOMODATION - ENT Exam ENT Exam: Mucous Membranes Moist, Normal Exam - Neck Exam Neck Exam: Full ROM, Normal Inspection - Respiratory Exam Respiratory Exam: Clear to Ausculation Bilateral, NORMAL BREATHING PATTERN. absent: Rales, Rhonchi, Wheezes, Respiratory Distress - Cardiovascular Exam Cardiovascular Exam: REGULAR RHYTHM, RRR, +S1, +S2. absent: JVD - GI/Abdominal Exam GI & Abdominal Exam: Soft, Normal Bowel Sounds. absent: Distended, Guarding, Tenderness, Rebound - Rectal Exam Rectal Exam: Deferred - Extremities Exam Extremities Exam: Full ROM, Normal Capillary Refill, Normal Inspection. absent : Calf Tenderness, Pedal Edema - Back Exam Back Exam: NORMAL INSPECTION - Neurological Exam Neurological Exam: Alert, Awake, Oriented x3 Neuro motor strength exam: Left Upper Extremity: 3, Right Upper Extremity: 5, Left Lower Extremity: 4, Right Lower Extremity: 5 Additional comments: left foot droop left facial droop some slurred speech - Psychiatric Exam Psychiatric exam: Normal Affect, Normal Mood - Skin Skin Exam: Dry, Intact, Normal Color, Warm Assessment and Plan - Assessment and Plan (Free Text) Assessment: 46 y/o gent with hx of HTN, brought in because of left facial droop and left sided weakness which started 12 hours prior to presentation. BP also noted to be uncontrolled with systolic in the 200's. MRI of Brain: acute subacute CVA right external capsule Patient now in telemetry for monitoring, PT and BP control physical therapy working with patient on his gait. 1. Acute CVA (cerebrovascular accident) Acute with left side weakness and left foot droop, unstable gait cont ASA, statin and BP control Neuro consult with Dr Haney appreciated MRA of brain : neg Carotid Sono: neg stenosis PT/OT consult appreciated and recommended Acute Rehab vs TCU . Patient has no insurance coverage so transitioning him to a facility for physical therpay is difficult. Will continue PT while in house.Possible transfer to [facility] once bed is available Started electrical stimulation to LLE 2. Hypertensive emergency Acute Pt came in with BP 200 systolic Pt was initially allowed permissive HTN for acute CVA cont Metoprolol, Norvasc and hydralazine Started more strict BP control . Increased hydralazine 50 mg po QID 01/21 and Bp is better controlled 3. MARIANELA (acute kidney injury) on CKD Acute unknown if pt has CKD stage III. Renal Us showed renal medical disease Most likely etiology uncontrolled HTN Nephro consult appreciated Cr 2.1 4. Compensated CHF , most likely systolic dysfunction EF 30-35 % with global hypokinesis Continue BP control, Statin, ASA Will need cardio eval for stress test once stable. Follow up Echo in 6 months 5. Thromobocytopenia unclear etiology monitor for now 6. DVT prophylaxis Acute Lovenox
[2017-02-01 23:00] LABS: CREATININE, RANDOM URINE 269.6 mg/dL
[2017-02-02 00:32] LABS: RBC URINE 7 /hpf (0-3); URINE BACTERIA MOD (<OCC); URINE BILIRUBIN NEGATIVE (NEGATIVE); URINE BLOOD SMALL (NEGATIVE); URINE COLOR YELLOW (YELLOW); URINE GLUCOSE (UA) NEG (Normal); URINE KETONE NEGATIVE (NEGATIVE); URINE LEUKOCYTE ESTERASE NEG Leu/uL (Negative); URINE PROTEIN 30 mg/dL (NEGATIVE); URINE UROBILINOGEN 0.2-1.0 mg/dL (0.2-1.0); WBC URINE 3 /hpf (0-5)
[2017-02-02 07:48] LABS: HEMATOCRIT 41.7 % (35.0-51.0); MEAN CELL VOLUME 90.7 fl (80.0-94.0); MEAN CORPUSCULAR HEMOGLOBIN 30.3 pg (27.0-31.0); MEAN CORPUSCULAR HGB CONC 33.4 g/dL (33.0-37.0); RED CELL DISTRIBUTION WIDTH 13.3 % (11.5-14.5); WHITE BLOOD COUNT 12.7 K/uL (4.8-10.8)
[2017-02-02 08:19] LABS: CALCIUM 9.4 mg/dL (8.4-10.2); POTASSIUM 3.7 MMOL/L (3.6-5.0)
[2017-02-02] MEDS: Enoxaparin 40 mg Syringe SC SCH (09:41)
[2017-02-02] MEDS: Pantoprazole 40 mg EC Tab PO SCH (09:41)
[2017-02-02] MEDS: Metoprolol Succinate 100 mg XL Tab PO SCH (09:41)
--- NOTE | 2017-02-02 12:14 | CP.PCM.PN ---
Subjective - Date & Time of Evaluation Date of Evaluation: 02/02/17 Time of Evaluation: 11:30 - Subjective Subjective: No fever feels that his left sided weakness is sl better than previous days no CP no SOB no abd pain tolerating PO diet Objective - Vital Signs/Intake and Output Vital Signs (last 24 hours): Temp Pulse Resp BP Pulse Ox 98.7 F 82 19 117/72 97 02/02/17 08:09 02/02/17 09:41 02/02/17 08:09 02/02/17 09:41 02/02/17 08:09 - Medications Medications: Current Medications Acetaminophen (Tylenol 325mg Tab) 650 mg PO Q6H PRN PRN Reason: Pain, Mild (1-3) Amlodipine Besylate (Norvasc) 10 mg PO DAILY [facility] Last Admin: 02/02/17 09:41 Dose: 10 mg Aspirin (Aspirin) 325 mg PO DAILY [facility] Last Admin: 02/02/17 09:40 Dose: 325 mg Atorvastatin Calcium (Lipitor) 80 mg PO DAILY [facility] Last Admin: 02/02/17 09:41 Dose: 80 mg Enoxaparin Sodium (Lovenox) 40 mg SC DAILY [facility] PRN Reason: Protocol Last Admin: 02/02/17 09:41 Dose: 40 mg Hydralazine HCl (Apresoline) 50 mg PO Q6 [facility] Last Admin: 02/02/17 09:39 Dose: 50 mg Labetalol HCl (Trandate) 10 mg IVP Q4 PRN PRN Reason: Systolic Blood Pressure Last Admin: 01/31/17 04:47 Dose: 10 mg Metoprolol Succinate (Toprol Xl) 100 mg PO DAILY [facility] Last Admin: 02/02/17 09:41 Dose: 100 mg Ondansetron HCl (Zofran Inj) 4 mg IVP Q6H PRN PRN Reason: Nausea/Vomiting Last Admin: 02/01/17 17:31 Dose: 4 mg Pantoprazole Sodium (Protonix Ec Tab) 40 mg PO DAILY [facility] Last Admin: 02/02/17 09:41 Dose: 40 mg - Labs Labs: 02/02/17 06:30 02/02/17 06:30 PT 12.6 Seconds (9.8-13.1) 01/27/17 00:10 INR 1.1 (0.9-1.2) 01/27/17 00:10 APTT 34.3 Seconds (25.6-37.1) 01/27/17 00:10 - Constitutional Appears: No Acute Distress - Head Exam Head Exam: ATRAUMATIC, NORMAL INSPECTION, NORMOCEPHALIC - Eye Exam Eye Exam: EOMI, Normal appearance, PERRL Pupil Exam: NORMAL ACCOMODATION - ENT Exam ENT Exam: Mucous Membranes Moist, Normal External Ear Exam - Neck Exam Neck Exam: Full ROM. absent: Meningismus - Respiratory Exam Respiratory Exam: NORMAL BREATHING PATTERN. absent: Respiratory Distress - Cardiovascular Exam Cardiovascular Exam: REGULAR RHYTHM, +S1, +S2 - GI/Abdominal Exam GI & Abdominal Exam: Soft, Normal Bowel Sounds. absent: Tenderness - Extremities Exam Extremities Exam: Normal Capillary Refill. absent: Calf Tenderness - Back Exam Back Exam: absent: CVA tenderness (L), CVA tenderness (R) - Neurological Exam Neurological Exam: Alert, Awake Neuro motor strength exam: Left Upper Extremity: 4, Right Upper Extremity: 5, Left Lower Extremity: 3, Right Lower Extremity: 5 Additional comments: left facial droop - Psychiatric Exam Psychiatric exam: Normal Affect, Normal Mood - Skin Skin Exam: Dry, Normal Color, Warm Assessment and Plan (1) Acute CVA (cerebrovascular accident) Status: Acute (2) Hypertensive emergency Status: Acute (3) MARIANELA (acute kidney injury) Status: Acute (4) DVT prophylaxis Status: Acute - Assessment and Plan (Free Text) Assessment: 46 y/o gent with hx of HTN, brought in because of left facial droop and left sided weakness which started 12 hours prior to presentation. BP also noted to be uncontrolled with systolic in the 200's. MRI of Brain: acute subacute CVA right external capsule Patient now in telemetry for monitoring, PT and BP control physical therapy working with patient on his gait. 1. Acute CVA (cerebrovascular accident) Acute with left side weakness and left foot droop, unstable gait cont ASA, statin and BP control Neuro consult with Dr Haney appreciated MRA of brain : neg Carotid Sono: neg stenosis PT/OT consult appreciated and recommended Acute Rehab vs TCU . Patient has no insurance coverage so transitioning him to a facility for physical therpay is difficult. Will continue PT while in house.Possible transfer to [facility] once bed is available Started electrical stimulation to LLE 2. Hypertensive emergency Acute Pt came in with BP 200 systolic Pt was initially allowed permissive HTN for acute CVA cont Metoprolol, Norvasc and hydralazine Started more strict BP control . Increased hydralazine 50 mg po QID 01/21 and Bp is better controlled 3. MARIANELA (acute kidney injury) on CKD Acute unknown if pt has CKD stage III. Renal Us showed renal medical disease Most likely etiology uncontrolled HTN Nephro consult appreciated Cr 2.7 4. Compensated CHF , most likely systolic dysfunction EF 30-35 % with global hypokinesis Continue BP control, Statin, ASA Will need cardio eval for stress test once stable. Follow up Echo in 6 months 5. Thromobocytopenia unclear etiology monitor for now 6. DVT prophylaxis Acute Lovenox
--- NOTE | 2017-02-02 20:51 | CP.PCM.PN ---
Subjective - Date & Time of Evaluation Date of Evaluation: 02/02/17 Time of Evaluation: 10:15 - Subjective Subjective: renal follow up note no events overnight PE:VSSnad sitting in chair heent normal op moist s1s2 present no resp distress abd soft left sided weakness ao times 3 skin normal psy cooperative A&P: agnes/ckd /htn/cva cr stable USG reviewed shows medical renal disease, s/i likely component of CKD ckd sec to htn nephropathy lytes ok please call @ [phone] if any qs or concerns Objective - Vital Signs/Intake and Output Vital Signs (last 24 hours): Temp Pulse Resp BP Pulse Ox 98.5 F 80 16 124/80 97 02/02/17 19:53 02/02/17 19:53 02/02/17 19:53 02/02/17 19:53 02/02/17 19:53 - Medications Medications: Current Medications Acetaminophen (Tylenol 325mg Tab) 650 mg PO Q6H PRN PRN Reason: Pain, Mild (1-3) Amlodipine Besylate (Norvasc) 10 mg PO DAILY [facility] Last Admin: 02/02/17 09:41 Dose: 10 mg Aspirin (Aspirin) 325 mg PO DAILY [facility] Last Admin: 02/02/17 09:40 Dose: 325 mg Atorvastatin Calcium (Lipitor) 80 mg PO DAILY [facility] Last Admin: 02/02/17 09:41 Dose: 80 mg Enoxaparin Sodium (Lovenox) 40 mg SC DAILY [facility] PRN Reason: Protocol Last Admin: 02/02/17 09:41 Dose: 40 mg Hydralazine HCl (Apresoline) 50 mg PO Q6 [facility] Last Admin: 02/02/17 16:55 Dose: 50 mg Labetalol HCl (Trandate) 10 mg IVP Q4 PRN PRN Reason: Systolic Blood Pressure Last Admin: 01/31/17 04:47 Dose: 10 mg Metoprolol Succinate (Toprol Xl) 100 mg PO DAILY [facility] Last Admin: 02/02/17 09:41 Dose: 100 mg Ondansetron HCl (Zofran Inj) 4 mg IVP Q6H PRN PRN Reason: Nausea/Vomiting Last Admin: 02/01/17 17:31 Dose: 4 mg Pantoprazole Sodium (Protonix Ec Tab) 40 mg PO DAILY [facility] Last Admin: 02/02/17 09:41 Dose: 40 mg - Labs Labs: 02/02/17 06:30 02/02/17 06:30 PT 12.6 Seconds (9.8-13.1) 01/27/17 00:10 INR 1.1 (0.9-1.2) 01/27/17 00:10 APTT 34.3 Seconds (25.6-37.1) 01/27/17 00:10
[2017-02-03] MEDS: Pantoprazole 40 mg EC Tab PO SCH (09:04)
[2017-02-03] MEDS: Enoxaparin 40 mg Syringe SC SCH (09:05)
[2017-02-03] MEDS: Metoprolol Succinate 100 mg XL Tab PO SCH (09:05)
[2017-02-03 09:18] LABS: MEAN CELL VOLUME 88.3 fl (80.0-94.0); MEAN CORPUSCULAR HGB CONC 32.9 g/dL (33.0-37.0)
[2017-02-03 09:25] LABS: BLOOD UREA NITROGEN 18 mg/dl (9-20); CALCIUM 10.1 mg/dL (8.4-10.2); CARBON DIOXIDE 29 mmol/L (22-30); CHLORIDE 107 mmol/L (98-107); GFR AFRICAN-AMERICAN > 60; GLUCOSE,RANDOM 127 mg/dL (75-110); POTASSIUM 3.7 MMOL/L (3.6-5.0); SODIUM 144 mmol/l (132-148)
--- NOTE | 2017-02-03 10:36 | CP.PCM.PN ---
Subjective - Date & Time of Evaluation Date of Evaluation: 02/03/17 Time of Evaluation: 09:30 - Subjective Subjective: No fever neuro deficit better everyday complains of insomnia no CP no SOB no abd pain Objective - Vital Signs/Intake and Output Vital Signs (last 24 hours): Temp Pulse Resp BP Pulse Ox 98.4 F 83 18 145/91 H 98 02/03/17 08:00 02/03/17 09:05 02/03/17 08:00 02/03/17 09:05 02/03/17 08:00 - Medications Medications: Current Medications Acetaminophen (Tylenol 325mg Tab) 650 mg PO Q6H PRN PRN Reason: Pain, Mild (1-3) Amlodipine Besylate (Norvasc) 10 mg PO DAILY [facility] Last Admin: 02/03/17 09:04 Dose: 10 mg Aspirin (Aspirin) 325 mg PO DAILY [facility] Last Admin: 02/03/17 09:06 Dose: 325 mg Atorvastatin Calcium (Lipitor) 80 mg PO DAILY [facility] Last Admin: 02/03/17 09:04 Dose: 80 mg Enoxaparin Sodium (Lovenox) 40 mg SC DAILY [facility] PRN Reason: Protocol Last Admin: 02/03/17 09:05 Dose: 40 mg Hydralazine HCl (Apresoline) 50 mg PO Q6 [facility] Last Admin: 02/03/17 09:04 Dose: 50 mg Labetalol HCl (Trandate) 10 mg IVP Q4 PRN PRN Reason: Systolic Blood Pressure Last Admin: 01/31/17 04:47 Dose: 10 mg Metoprolol Succinate (Toprol Xl) 100 mg PO DAILY [facility] Last Admin: 02/03/17 09:05 Dose: 100 mg Ondansetron HCl (Zofran Inj) 4 mg IVP Q6H PRN PRN Reason: Nausea/Vomiting Last Admin: 02/01/17 17:31 Dose: 4 mg Pantoprazole Sodium (Protonix Ec Tab) 40 mg PO DAILY [facility] Last Admin: 02/03/17 09:04 Dose: 40 mg - Labs Labs: 02/03/17 09:05 02/03/17 09:05 PT 12.6 Seconds (9.8-13.1) 01/27/17 00:10 INR 1.1 (0.9-1.2) 01/27/17 00:10 APTT 34.3 Seconds (25.6-37.1) 01/27/17 00:10 - Constitutional Appears: No Acute Distress - Head Exam Head Exam: ATRAUMATIC, NORMAL INSPECTION, NORMOCEPHALIC - Eye Exam Eye Exam: EOMI, Normal appearance, PERRL Pupil Exam: NORMAL ACCOMODATION - ENT Exam ENT Exam: Mucous Membranes Moist, Normal External Ear Exam - Neck Exam Neck Exam: Full ROM. absent: Meningismus - Respiratory Exam Respiratory Exam: NORMAL BREATHING PATTERN. absent: Respiratory Distress - Cardiovascular Exam Cardiovascular Exam: REGULAR RHYTHM, +S1, +S2 - GI/Abdominal Exam GI & Abdominal Exam: Soft, Normal Bowel Sounds. absent: Tenderness - Extremities Exam Extremities Exam: Normal Capillary Refill. absent: Calf Tenderness - Back Exam Back Exam: absent: CVA tenderness (L), CVA tenderness (R) - Neurological Exam Neurological Exam: Alert, Awake Neuro motor strength exam: Left Upper Extremity: 4, Right Upper Extremity: 5, Left Lower Extremity: 3-4 , Right Lower Extremity: 5 Additional comments: left facial droop - Psychiatric Exam Psychiatric exam: Normal Affect, Normal Mood - Skin Skin Exam: Dry, Normal Color, Warm Assessment and Plan (1) Acute CVA (cerebrovascular accident) Status: Acute (2) Hypertensive emergency Status: Acute (3) MARIANELA (acute kidney injury) Status: Acute (4) DVT prophylaxis Status: Acute - Assessment and Plan (Free Text) Assessment: 46 y/o gent with hx of HTN, brought in because of left facial droop and left sided weakness which started 12 hours prior to presentation. BP also noted to be uncontrolled with systolic in the 200's. MRI of Brain: acute subacute CVA right external capsule Patient now in telemetry for monitoring, PT and BP control. Physical therapy working with patient on his gait. 1. Acute CVA (cerebrovascular accident) Acute with left side weakness and left foot droop, unstable gait cont ASA, statin and BP control Neuro consult with Dr Haney appreciated MRA of brain : neg Carotid Sono: neg stenosis PT/OT consult appreciated and recommended Acute Rehab vs TCU . Patient has no insurance coverage so transitioning him to a facility for physical therpay is difficult. Will continue PT while in house. Possible transfer to [facility] once bed is available Started electrical stimulation to LLE 2. Hypertensive emergency Acute Pt came in with BP 200 systolic Pt was initially allowed permissive HTN for acute CVA cont Metoprolol, Norvasc and hydralazine Started more strict BP control . Increased hydralazine 50 mg po QID 01/21 and Bp is better controlled 3. MARIANELA (acute kidney injury) on CKD Acute unknown if pt has CKD stage III. Renal Us showed renal medical disease Most likely etiology uncontrolled HTN Nephro consult appreciated Crea improved today 4. Compensated CHF , most likely systolic dysfunction EF 30-35 % with global hypokinesis Continue BP control, Statin, ASA Will need cardio eval for stress test once stable. Follow up Echo in 6 months 5. Thrombocytopenia, resolved unclear etiology prob sec to meds monitor 6. DVT prophylaxis Acute Lovenox
[2017-02-04 05:41] LABS: CALCIUM 9.6 mg/dL (8.4-10.2); POTASSIUM 3.9 MMOL/L (3.6-5.0)
[2017-02-04] MEDS: Enoxaparin 40 mg Syringe SC SCH (09:53)
[2017-02-04] MEDS: Pantoprazole 40 mg EC Tab PO SCH (09:55)
[2017-02-04] MEDS: Metoprolol Succinate 100 mg XL Tab PO SCH (09:55)
--- NOTE | 2017-02-04 10:43 | CP.PCM.PN ---
Subjective - Date & Time of Evaluation Date of Evaluation: 02/04/17 Time of Evaluation: 10:43 - Subjective Subjective: Patient feeling okay No nausea or vomiting Vital sign noted to be stable and blood pressure is better controlled Objective - Vital Signs/Intake and Output Vital Signs (last 24 hours): Temp Pulse Resp BP Pulse Ox 98.1 F 81 18 148/96 H 98 02/04/17 08:00 02/04/17 09:55 02/04/17 08:00 02/04/17 09:55 02/04/17 08:00 - Medications Medications: Current Medications Acetaminophen (Tylenol 325mg Tab) 650 mg PO Q6H PRN PRN Reason: Pain, Mild (1-3) Amlodipine Besylate (Norvasc) 10 mg PO DAILY [facility] Last Admin: 02/04/17 09:55 Dose: 10 mg Aspirin (Aspirin) 325 mg PO DAILY [facility] Last Admin: 02/04/17 09:57 Dose: 325 mg Atorvastatin Calcium (Lipitor) 80 mg PO DAILY [facility] Last Admin: 02/04/17 09:53 Dose: 80 mg Enoxaparin Sodium (Lovenox) 40 mg SC DAILY [facility] PRN Reason: Protocol Last Admin: 02/04/17 09:53 Dose: 40 mg Hydralazine HCl (Apresoline) 50 mg PO Q6 [facility] Last Admin: 02/04/17 09:54 Dose: 50 mg Labetalol HCl (Trandate) 10 mg IVP Q4 PRN PRN Reason: Systolic Blood Pressure Last Admin: 01/31/17 04:47 Dose: 10 mg Metoprolol Succinate (Toprol Xl) 100 mg PO DAILY [facility] Last Admin: 02/04/17 09:55 Dose: 100 mg Ondansetron HCl (Zofran Inj) 4 mg IVP Q6H PRN PRN Reason: Nausea/Vomiting Last Admin: 02/01/17 17:31 Dose: 4 mg Pantoprazole Sodium (Protonix Ec Tab) 40 mg PO DAILY [facility] Last Admin: 02/04/17 09:55 Dose: 40 mg Zolpidem Tartrate (Ambien) 5 mg PO HS PRN PRN Reason: Insomnia Last Admin: 02/03/17 22:38 Dose: 5 mg - Labs Labs: 02/03/17 09:05 02/04/17 04:45 PT 12.6 Seconds (9.8-13.1) 01/27/17 00:10 INR 1.1 (0.9-1.2) 01/27/17 00:10 APTT 34.3 Seconds (25.6-37.1) 01/27/17 00:10 - Constitutional Appears: No Acute Distress - ENT Exam ENT Exam: Mucous Membranes Moist - Respiratory Exam Respiratory Exam: NORMAL BREATHING PATTERN - GI/Abdominal Exam GI & Abdominal Exam: Soft, Normal Bowel Sounds - Extremities Exam Extremities Exam: absent: Calf Tenderness - Back Exam Back Exam: absent: CVA tenderness (L), CVA tenderness (R) - Neurological Exam Neurological Exam: Alert Assessment and Plan (1) MARIANELA (acute kidney injury) Assessment & Plan: Most likely patient has a chronic kidney disease his stage III and not acute injury? Serum creatinine yesterday was normal most likely it is an error? No ultrasound of the kidney impression IMPRESSION: Echogenic renal parenchyma is identified bilaterally suggesting intrinsic medical renal disease. No obstructive uropathy bilaterally. Continue monitoring kidney function blood pressure better controlled hyperphosphatemia serum phosphorus 4.9 we will add calcium acetate. Serum PTH still pending Status: Acute (2) Acute CVA (cerebrovascular accident) Status: Acute
[2017-02-04] MEDS ORDERED: Calcium Acetate 667 MG Capsule PO ONE (10:47)
--- NOTE | 2017-02-04 11:36 | CP.PCM.PN ---
Subjective - Date & Time of Evaluation Date of Evaluation: 02/04/17 Time of Evaluation: 11:00 - Subjective Subjective: Pt feels better left sided weakness was able to sleep better last night with low dose Ambien no CP no SOB no abd pain Objective - Vital Signs/Intake and Output Vital Signs (last 24 hours): Temp Pulse Resp BP Pulse Ox 98.1 F 81 18 148/96 H 98 02/04/17 08:00 02/04/17 09:55 02/04/17 08:00 02/04/17 09:55 02/04/17 08:00 - Medications Medications: Current Medications Acetaminophen (Tylenol 325mg Tab) 650 mg PO Q6H PRN PRN Reason: Pain, Mild (1-3) Amlodipine Besylate (Norvasc) 10 mg PO DAILY [facility] Last Admin: 02/04/17 09:55 Dose: 10 mg Aspirin (Aspirin) 325 mg PO DAILY [facility] Last Admin: 02/04/17 09:57 Dose: 325 mg Atorvastatin Calcium (Lipitor) 80 mg PO DAILY [facility] Last Admin: 02/04/17 09:53 Dose: 80 mg Enoxaparin Sodium (Lovenox) 40 mg SC DAILY [facility] PRN Reason: Protocol Last Admin: 02/04/17 09:53 Dose: 40 mg Hydralazine HCl (Apresoline) 50 mg PO Q6 [facility] Last Admin: 02/04/17 09:54 Dose: 50 mg Labetalol HCl (Trandate) 10 mg IVP Q4 PRN PRN Reason: Systolic Blood Pressure Last Admin: 01/31/17 04:47 Dose: 10 mg Metoprolol Succinate (Toprol Xl) 100 mg PO DAILY [facility] Last Admin: 02/04/17 09:55 Dose: 100 mg Ondansetron HCl (Zofran Inj) 4 mg IVP Q6H PRN PRN Reason: Nausea/Vomiting Last Admin: 02/01/17 17:31 Dose: 4 mg Pantoprazole Sodium (Protonix Ec Tab) 40 mg PO DAILY [facility] Last Admin: 02/04/17 09:55 Dose: 40 mg Zolpidem Tartrate (Ambien) 5 mg PO HS PRN PRN Reason: Insomnia Last Admin: 02/03/17 22:38 Dose: 5 mg - Labs Labs: 02/03/17 09:05 02/04/17 04:45 PT 12.6 Seconds (9.8-13.1) 01/27/17 00:10 INR 1.1 (0.9-1.2) 01/27/17 00:10 APTT 34.3 Seconds (25.6-37.1) 01/27/17 00:10 - Constitutional Appears: No Acute Distress - Head Exam Head Exam: ATRAUMATIC, NORMAL INSPECTION, NORMOCEPHALIC - Eye Exam Eye Exam: EOMI, Normal appearance, PERRL Pupil Exam: NORMAL ACCOMODATION - ENT Exam ENT Exam: Mucous Membranes Moist, Normal External Ear Exam - Neck Exam Neck Exam: Full ROM. absent: Meningismus - Respiratory Exam Respiratory Exam: NORMAL BREATHING PATTERN. absent: Respiratory Distress - Cardiovascular Exam Cardiovascular Exam: REGULAR RHYTHM, +S1, +S2 - GI/Abdominal Exam GI & Abdominal Exam: Soft, Normal Bowel Sounds. absent: Tenderness - Extremities Exam Extremities Exam: Normal Capillary Refill. absent: Calf Tenderness - Back Exam Back Exam: absent: CVA tenderness (L), CVA tenderness (R) - Neurological Exam Neurological Exam: Alert, Awake Neuro motor strength exam: Left Upper Extremity: 4, Right Upper Extremity: 5, Left Lower Extremity: 3-4 , Right Lower Extremity: 5 Additional comments: left facial droop improving - Psychiatric Exam Psychiatric exam: Normal Affect, Normal Mood - Skin Skin Exam: Dry, Normal Color, Warm Assessment and Plan (1) Acute CVA (cerebrovascular accident) Status: Acute (2) Hypertensive emergency Status: Acute (3) MARIANELA (acute kidney injury) Status: Acute (4) DVT prophylaxis Status: Acute - Assessment and Plan (Free Text) Assessment: 46 y/o gent with hx of HTN, brought in because of left facial droop and left sided weakness which started 12 hours prior to presentation. BP also noted to be uncontrolled with systolic in the 200's. MRI of Brain: acute subacute CVA right external capsule Patient now in telemetry for monitoring, PT and BP control. Physical therapy working with patient on his gait. 1. Acute CVA (cerebrovascular accident) Acute with left side weakness and left foot drop, unstable gait cont ASA, statin and BP control Neuro consult with Dr Haney appreciated MRA of brain : neg Carotid Sono: neg stenosis PT/OT consult appreciated and recommended Acute Rehab vs TCU . Patient has no insurance coverage so transitioning him to a facility for physical therpay is difficult. Will continue PT while in house. Possible transfer to TCu once bed is available Started electrical stimulation to LLE 2. Hypertensive emergency Acute Pt came in with BP 200 systolic Pt was initially allowed permissive HTN for acute CVA cont Metoprolol, Norvasc and hydralazine Started more strict BP control . Increased hydralazine 50 mg po QID 01/21 and Bp is better controlled 3. MARIANELA (acute kidney injury) on CKD stage III Acute unknown if pt has CKD stage III. Renal Us showed renal medical disease Most likely etiology uncontrolled HTN Nephro consult appreciated Crea stable Calcium acetate started for elevated Phos 4. Compensated CHF , most likely systolic dysfunction EF 30-35 % with global hypokinesis Continue BP control, Statin, ASA Will need cardio eval for stress test once stable. Follow up Echo in 6 months 5. Thrombocytopenia, resolved unclear etiology prob sec to meds monitor 6. DVT prophylaxis Acute Lovenox
[2017-02-05 06:00] LABS: CALCIUM 9.5 mg/dL (8.4-10.2); PHOSPHOROUS 4.2 mg/dl (2.5-4.5); POTASSIUM 3.9 MMOL/L (3.6-5.0)
[2017-02-05] MEDS: Enoxaparin 40 mg Syringe SC SCH (08:43)
[2017-02-05] MEDS: Pantoprazole 40 mg EC Tab PO SCH (08:44)
[2017-02-05] MEDS: Metoprolol Succinate 100 mg XL Tab PO SCH (08:44)
--- NOTE | 2017-02-05 10:05 | CP.PCM.PN ---
Objective - Vital Signs/Intake and Output Vital Signs (last 24 hours): Temp Pulse Resp BP Pulse Ox 98.5 F 76 20 165/81 H 98 02/05/17 08:00 02/05/17 09:35 02/05/17 08:00 02/05/17 09:35 02/05/17 08:00 - Medications Medications: Current Medications Acetaminophen (Tylenol 325mg Tab) 650 mg PO Q6H PRN PRN Reason: Pain, Mild (1-3) Amlodipine Besylate (Norvasc) 10 mg PO DAILY [facility] Last Admin: 02/05/17 08:43 Dose: 10 mg Aspirin (Aspirin) 325 mg PO DAILY [facility] Last Admin: 02/05/17 08:48 Dose: 325 mg Atorvastatin Calcium (Lipitor) 40 mg PO DAILY [facility] Last Admin: 02/05/17 08:45 Dose: 40 mg Enoxaparin Sodium (Lovenox) 40 mg SC DAILY [facility] PRN Reason: Protocol Last Admin: 02/05/17 08:43 Dose: 40 mg Hydralazine HCl (Apresoline) 50 mg PO Q6 [facility] Last Admin: 02/05/17 09:35 Dose: 50 mg Labetalol HCl (Trandate) 10 mg IVP Q4 PRN PRN Reason: Systolic Blood Pressure Last Admin: 01/31/17 04:47 Dose: 10 mg Metoprolol Succinate (Toprol Xl) 100 mg PO DAILY [facility] Last Admin: 02/05/17 08:44 Dose: 100 mg Ondansetron HCl (Zofran Inj) 4 mg IVP Q6H PRN PRN Reason: Nausea/Vomiting Last Admin: 02/01/17 17:31 Dose: 4 mg Pantoprazole Sodium (Protonix Ec Tab) 40 mg PO DAILY [facility] Last Admin: 02/05/17 08:44 Dose: 40 mg Zolpidem Tartrate (Ambien) 5 mg PO HS PRN PRN Reason: Insomnia Last Admin: 02/03/17 22:38 Dose: 5 mg - Labs Labs: 02/03/17 09:05 02/05/17 04:20 PT 12.6 Seconds (9.8-13.1) 01/27/17 00:10 INR 1.1 (0.9-1.2) 01/27/17 00:10 APTT 34.3 Seconds (25.6-37.1) 01/27/17 00:10 Assessment and Plan (1) Acute CVA (cerebrovascular accident) Status: Acute (2) Hypertensive emergency Status: Acute (3) MARIANELA (acute kidney injury) Status: Acute (4) DVT prophylaxis Status: Acute
[2017-02-05 13:05] VITALS: RESP 18
--- NOTE | 2017-02-05 15:44 | CP.PCM.DIS ---
Provider - Provider Date of Admission: 01/27/17 00:50 Attending physician: Juliana Carpio MD Consults: Neuro : Dr Haney Nephrology : Dr Yao Time Spent in preparation of Discharge (in minutes): 25 Diagnosis - Discharge Diagnosis (1) Acute CVA (cerebrovascular accident) Status: Acute (2) Hypertensive emergency Status: Acute (3) MARIANELA (acute kidney injury) Status: Acute (4) DVT prophylaxis Status: Acute Hospital Course - Lab Results Lab Results: Micro Results 01/30/17 14:00 Nose MRSA Culture (Admit) - Final MRSA NOT DETECTED 01/27/17 09:50 Naris MRSA Culture (Admit) - Final MRSA NOT DETECTED Most Recent Lab Values WBC 6.0 K/uL (4.8-10.8) D 02/03/17 09:05 RBC 4.76 Mil/uL (4.40-5.90) 02/03/17 09:05 Hgb 13.8 g/dL (12.0-18.0) 02/03/17 09:05 Hct 42.0 % (35.0-51.0) 02/03/17 09:05 MCV 88.3 fl (80.0-94.0) D 02/03/17 09:05 MCH 29.0 pg (27.0-31.0) 02/03/17 09:05 MCHC 32.9 g/dL (33.0-37.0) L 02/03/17 09:05 RDW 18.0 % (11.5-14.5) H 02/03/17 09:05 Plt Count 137 K/uL (130-400) 02/03/17 09:05 MPV 12.4 fl (7.2-11.7) H 01/27/17 00:10 Neut % (Auto) 61.5 % (50.0-75.0) 01/27/17 00:10 Lymph % (Auto) 26.6 % (20.0-40.0) 01/27/17 00:10 [place] % (Auto) 7.1 % (0.0-10.0) 01/27/17 00:10 Eos % (Auto) 4.1 % (0.0-4.0) H 01/27/17 00:10 Baso % (Auto) 0.7 % (0.0-2.0) 01/27/17 00:10 Neut # 6.9 K/uL (1.8-7.0) 01/27/17 00:10 Lymph # 3.0 K/uL (1.0-4.3) 01/27/17 00:10 [place] # 0.8 K/uL (0.0-0.8) 01/27/17 00:10 Eos # 0.5 K/uL (0.0-0.7) 01/27/17 00:10 Baso # 0.1 K/uL (0.0-0.2) 01/27/17 00:10 PT 12.6 Seconds (9.8-13.1) 01/27/17 00:10 INR 1.1 (0.9-1.2) 01/27/17 00:10 APTT 34.3 Seconds (25.6-37.1) 01/27/17 00:10 Sodium 141 mmol/l (132-148) 02/05/17 04:20 Potassium 3.9 MMOL/L (3.6-5.0) 02/05/17 04:20 Chloride 108 mmol/L (98-107) H 02/05/17 04:20 Carbon Dioxide 22 mmol/L (22-30) 02/05/17 04:20 Anion Gap 15 (10-20) 02/05/17 04:20 BUN 42 mg/dl (9-20) H 02/05/17 04:20 Creatinine 2.3 mg/dL (0.8-1.5) H 02/05/17 04:20 Est GFR ( Amer) 37 02/05/17 04:20 Est GFR (Non-Af Amer) 31 02/05/17 04:20 POC Glucose (mg/dL) 120 mg/dL (65-110) H 01/27/17 00:38 Random Glucose 87 mg/dL (75-110) 02/05/17 04:20 Hemoglobin A1c 5.3 % (4.2-6.5) 01/27/17 00:10 Calcium 9.5 mg/dL (8.4-10.2) 02/05/17 04:20 Phosphorus 4.2 mg/dl (2.5-4.5) 02/05/17 04:20 Magnesium 2.0 MG/DL (1.6-2.3) 01/27/17 05:30 Total Bilirubin 0.7 mg/dl (0.2-1.3) 01/27/17 00:10 AST 24 U/L (17-59) 01/27/17 00:10 ALT 33 U/L (21-72) 01/27/17 00:10 Alkaline Phosphatase 81 U/L (38-126) 01/27/17 00:10 Troponin I 0.0260 ng/mL (0.00-0.120) 01/27/17 18:05 Total Protein 8.2 G/DL (6.3-8.2) 01/27/17 00:10 Albumin 4.8 g/dL (3.5-5.0) 01/27/17 00:10 Globulin 3.4 gm/dL (2.2-3.9) 01/27/17 00:10 Albumin/Globulin Ratio 1.4 (1.0-2.1) 01/27/17 00:10 Triglycerides 226 mg/DL (0-149) H 01/27/17 00:10 Cholesterol 225 mg/dL (0-199) H 01/27/17 00:10 LDL Cholesterol Direct 140 mg/dL (0-129) H 01/27/17 00:10 HDL Cholesterol 50 MG/DL (30-70) 01/27/17 00:10 TSH 3rd Generation 2.75 mIU/ML (0.46-4.68) 01/27/17 05:30 PTH Intact Whole [place] 54 pg/mL (14-64) 02/01/17 14:10 Urine Color Yellow (YELLOW) 02/01/17 22:40 Urine Clarity Cloudy (Clear) 02/01/17 22:40 Urine pH 5.0 (5.0-8.0) 02/01/17 22:40 Ur Specific [place] 1.017 (1.003-1.030) 02/01/17 22:40 Urine Protein 30 mg/dL (NEGATIVE) 02/01/17 22:40 Urine Glucose (UA) Neg mg/dL (Normal) 02/01/17 22:40 Urine Ketones Negative mg/dL (NEGATIVE) 02/01/17 22:40 Urine Blood Small (NEGATIVE) 02/01/17 22:40 Urine Nitrate Negative (NEGATIVE) 02/01/17 22:40 Urine Bilirubin Negative (NEGATIVE) 02/01/17 22:40 Urine Urobilinogen 0.2-1.0 mg/dL (0.2-1.0) 02/01/17 22:40 Ur Leukocyte Esterase Neg [place]/uL (Negative) 02/01/17 22:40 Urine RBC (Auto) 7 /hpf (0-3) H 02/01/17 22:40 Urine Microscopic WBC 3 /hpf (0-5) 02/01/17 22:40 Ur Squamous Epith Cells < 1 /hpf (0-5) 02/01/17 22:40 Urine Bacteria Mod (<OCC) H 02/01/17 22:40 Urine Sperm (Auto) Occ /hpf (NONE) 02/01/17 22:40 Ur Random Creatinine 269.6 mg/dL 02/01/17 22:49 U Random Total Protein 37.0 mg/dL (0.0-12.0) H 02/01/17 22:49 Ur Random Sodium 10 meq/L 02/01/17 22:49 Ur Random Potassium 102.2 mmol/L 02/01/17 22:49 STACI Screen Negative (Negative) 02/01/17 14:10 Blood Type O NEGATIVE 01/27/17 00:10 Blood Type Confirm O NEGATIVE 01/27/17 01:30 Antibody Screen Negative 01/27/17 00:10 BBK History Checked No verified bt 01/27/17 00:10 - Hospital Course Hospital Course: 46 y/o gent with hx of HTN, brought in because of left facial droop and left sided weakness which started 12 hours prior to presentation. BP also noted to be uncontrolled with systolic in the 200's. Patient was admitted to ICU and monitored closely. Neurology consulted. Pt was started on ASA, statin, Lovenox for DVt proph. MRI of Brain: acute subacute CVA right external capsule BP monitored closely and slowly lowered . PT consulted - rec Acute Rehab/TCU. 1. Acute CVA (cerebrovascular accident) Acute with left side weakness and left foot drop, unstable gait cont ASA, statin and BP control Neuro consult with Dr Haney appreciated MRA of brain : neg Carotid Sono: neg stenosis PT/OT consult appreciated and recommended Acute Rehab vs TCU . Possible transfer to TCu Started electrical stimulation to LLE 2. Hypertensive emergency Acute Pt came in with BP 200 systolic Pt was initially allowed permissive HTN for acute CVA cont Metoprolol, Norvasc and hydralazine Started more strict BP control . Increased hydralazine 50 mg po QID 01/21 and Bp is better controlled 3. MARIANELA (acute kidney injury) on CKD stage III Acute unknown if pt has CKD stage III. Renal Us showed renal medical disease Most likely etiology uncontrolled HTN Nephro consult appreciated Crea stable Calcium acetate started for elevated Phos 4. Compensated CHF , most likely systolic dysfunction EF 30-35 % with global hypokinesis Continue BP control, Statin, ASA Will need cardio eval for stress test once stable. Follow up Echo in 6 months 5. Thrombocytopenia, resolved unclear etiology prob sec to meds monitor 6. DVT prophylaxis Acute Lovenox Discharge Exam - Head Exam Head Exam: ATRAUMATIC, NORMAL INSPECTION, NORMOCEPHALIC - Eye Exam Eye Exam: EOMI, Normal appearance, PERRL Pupil Exam: NORMAL ACCOMODATION - ENT Exam ENT Exam: Mucous Membranes Moist, Normal External Ear Exam - Neck Exam Neck exam: Full Rom - Respiratory Exam Respiratory Exam: NORMAL BREATHING PATTERN. absent: Respiratory Distress - Cardiovascular Exam Cardiovascular Exam: REGULAR RHYTHM, +S1, +S2 - GI/Abdominal Exam GI & Abdominal Exam: Normal Bowel Sounds, Soft. absent: Tenderness - Extremities Exam Extremities exam: normal capillary refill, pedal pulses present - Back Exam Back exam: FULL ROM. absent: CVA tenderness (L), CVA tenderness (R), vertebral tenderness - Neurological Exam Neurological exam: Alert, Oriented x3, Reflexes Normal Additional comments: Left hemiparesis 3-4/5 - Psychiatric Exam Psychiatric exam: Normal Affect, Normal Mood - Skin Skin Exam: Dry, Normal Color, Warm Discharge Plan - Follow Up Plan Condition: GOOD Disposition: TRANSF TO SNF Additional Instructions: d/c to TCU
[2017-02-05 15:58] VITALS: PULSE 67; TEMP 98.3; O2SAT 95
[2017-02-05 16:33] VITALS: BP 129/76
== END 2017-02-05 18:14 | DRG 65 ==
LOC: H.ER 23:42 → H.ERHOLD 01-27 00:50 → H.ICU/CCU 01-27 01:50 → H.TEL 01-30 13:10
PROVIDERS: ADMIT Internal Medicine; ATTEND Internal Medicine
PROC: 3E0234Z Introduction of Serum, Toxoid and Vaccine into Muscle, Percutaneous Approach (ICD-10-PCS; principal; 2017-01-27)
DX: I63.9 Cerebral infarction, unspecified (principal); I13.0 Hypertensive heart and chronic kidney disease with heart failure and stage 1 through stage 4 chronic kidney disease, or unspecified chronic kidney disease; D69.6 Thrombocytopenia, unspecified; N17.9 Acute kidney failure, unspecified; I50.20 Unspecified systolic (congestive) heart failure; N18.3 Chronic kidney disease, stage 3 (moderate); G81.94 Hemiplegia, unspecified affecting left nondominant side; E83.39 Other disorders of phosphorus metabolism; I16.1 Hypertensive emergency; Z23 Encounter for immunization; I45.10 Unspecified right bundle-branch block; E78.5 Hyperlipidemia, unspecified; R47.81 Slurred speech; R29.810 Facial weakness; M21.372 Foot drop, left foot; R73.9 Hyperglycemia, unspecified; G47.00 Insomnia, unspecified

== ENCOUNTER 2017-02-05 16:17 | Inpatient (IN) | payer MEDICAID, SELFPAY ==
[2017-02-05 18:24] VITALS: RESP 20
[2017-02-05] MEDS ORDERED: Pneumococcal 23-Valent Vaccine IM ONE (21:00)
[2017-02-06] MEDS: Metoprolol Succinate 100 mg XL Tab PO SCH (08:28)
[2017-02-06] MEDS: Enoxaparin 40 mg Syringe SC SCH (08:29)
--- NOTE | 2017-02-06 10:06 | CP.PCM.HP ---
History of Present Illness - History of Present Illness History of Present Illness: cc: acute cva 46 y/o gent with hx of HTN, brought in because of left facial droop and left sided weakness which started 12 hours prior to presentation. BP also noted to be uncontrolled with systolic in the 200's. Patient was admitted to ICU and monitored closely. Neurology consulted. Pt was started on ASA, statin, Lovenox for DVt proph. MRI of Brain: acute subacute CVA right external capsule BP monitored closely and slowly lowered. PT consulted, patient admitted to TCU for further rehabilitation needs. Review of systems per HPI all other systems reviewed and negative by me Past medical history hypertension Past surgical history denies Family history: [place] Medications as below No known drug allergies Vitals reviewed and stable Physical exam: Constitutional- cooperative, awake, alert. Head- NCAT, PERRL Eye- PERRL, normal accommodation ENT- normal exam, MMM. Neck- normal inspection, supple, no JVD Respiratory- CTAB, no wheezes rales rhonchi Cardiovascular- RRR, +S1, +S2 no MRG GI/Abdominal- normal bowel sounds, soft, no mass, no hsm Skin- warm, dry Extremities Exam- normal capillary refill, normal inspection Neurological Exam- alert, awake Psych- normal mood, normal affect Labs reviewed Allergies No Known Allergies Allergy (Verified 02/05/17 17:43) Height & Weight Height 5 ft 6 in Weight 165 lb 5 oz Start Date/Time Active Medications 02/05/17 18:30 Acetaminophen [Tylenol 325mg tab] 650 mg PO Q6H PRN Zolpidem [Ambien] 5 mg PO HS PRN 02/05/17 22:00 hydrALAZINE [Apresoline] 50 mg PO Q6 02/06/17 09:00 Aspirin 325 mg PO DAILY Atorvastatin [Lipitor] 40 mg PO DAILY Enoxaparin [Lovenox] 40 mg SC DAILY [facility] Clinical Indication: DVT/PE Prevention Metoprolol Succinate [Toprol XL] 100 mg PO DAILY amLODIPine [Norvasc] 10 mg PO DAILY 46 y/o gent with hx of HTN, brought in because of left facial droop and left sided weakness which started 12 hours prior to presentation. BP also noted to be uncontrolled with systolic in the 200's. Patient was admitted to ICU and monitored closely. Neurology consulted. Pt was started on ASA, statin, Lovenox for DVt proph. MRI of Brain: acute subacute CVA right external capsule BP monitored closely and slowly lowered. PT consulted, patient admitted to TCU for further rehabilitation needs. 1. Acute CVA (cerebrovascular accident) with left side weakness and left foot drop, unstable gait cont ASA, statin and BP control Neuro consult with Dr Haney appreciated inpatient MRA of brain : neg Carotid Sono: neg stenosis PT/OT consult appreciated and recommended Acute Rehab vs TCU . Started electrical stimulation to LLE 2. Hypertensive emergency Acute Pt came in with BP 200 systolic Pt was initially allowed permissive HTN for acute CVA cont Metoprolol, Norvasc and hydralazine 3. MARIANELA (acute kidney injury) on CKD stage III Acute unknown if pt has CKD stage III. Renal Us showed renal medical disease Most likely etiology uncontrolled HTN Nephro consult appreciated Cr stable Calcium acetate started for elevated Phos 4. Compensated CHF , most likely systolic dysfunction EF 30-35 % with global hypokinesis Continue BP control, Statin, ASA Will need cardio eval for stress test once stable. Follow up Echo in 6 months 5. Thrombocytopenia, resolved unclear etiology prob sec to meds monitor 6. DVT prophylaxis Acute Lovenox Present on Admission - Present on Admission Any Indicators Present on Admission: No Past Patient History - Tetanus Immunizations Tetanus Immunization: Unknown - Past Medical History & Family History Past Medical History?: Yes - Past Social History Smoking Status: Never Smoked - CARDIAC Hx Cardiac Disorders: No Hx Angina: No Hx Atrial Fibrillation: No Hx Cardia Arrhythmia: No Hx Circulatory Problems: No Hx Congestive Heart Failure: No Hx Hypertension: Yes - PULMONARY Hx Respiratory Disorders: No Hx Asthma: No Hx Bronchitis: No Hx Chronic Obstructive Pulmonary Disease (COPD): No Hx Lung Cancer: No Hx Sleep Apnea: No - NEUROLOGICAL Hx Neurological Disorder: No HX Cerebrovascular Accident: No Hx Seizures: No Hx Transient Ischemic Attacks (TIA): No - HEENT Hx HEENT Problems: No - RENAL Hx Chronic Kidney Disease: No Hx Renal Failure: No - ENDOCRINE/METABOLIC Hx Endocrine Disorders: No Hx Diabetes Mellitus Type 2: No - HEMATOLOGICAL/ONCOLOGICAL Hx Cancer: No Hx Cirrhosis: No Hx Hepatitis A: No Hx Hepatitis B: No Hx Hepatitis C: No - INTEGUMENTARY Hx Dermatological Problems: No Hx Eczema: No Hx Melanoma: No - MUSCULOSKELETAL/RHEUMATOLOGICAL Hx Musculoskeletal Disorders: No Hx Arthritis: No Hx Falls: No Hx Fractures: No - GASTROINTESTINAL Hx Gastrointestinal Disorders: No - GENITOURINARY/GYNECOLOGICAL Hx Genitourinary Disorders: No - PSYCHIATRIC Hx Psychophysiologic Disorder: No Hx Substance Use: No - SURGICAL HISTORY Hx Surgeries: No - ANESTHESIA Hx Anesthesia: No Meds Allergies/Adverse Reactions: Allergies Allergy/AdvReac Type Severity Reaction Status Date / Time No Known Allergies Allergy Verified 02/05/17 17:43 Results - Vital Signs Recent Vital Signs: Last Vital Signs Temp 98.1 F 02/06/17 07:59 Pulse 69 02/06/17 08:29 Resp 20 02/06/17 07:59 BP 147/66 02/06/17 08:29 Pulse Ox 98 02/06/17 07:59
[2017-02-07] MEDS: Metoprolol Succinate 100 mg XL Tab PO SCH (09:01)
[2017-02-07] MEDS: Enoxaparin 40 mg Syringe SC SCH (09:02)
--- NOTE | 2017-02-07 13:30 | CP.PCM.PN ---
Subjective - Date & Time of Evaluation Date of Evaluation: 02/07/17 Time of Evaluation: 10:00 - Subjective Subjective: The patient was seen and examined at bedside today. He has no complaints today other than ongoing left sided weakness and left foot drop and is cooperative with physical therapy. His gait remains unstable at this time. The patient denies any chest pain, shortness of breath, headache, abdominal pain, nausea, vomiting, or diarrhea. Objective - Vital Signs/Intake and Output Vital Signs (last 24 hours): Temp Pulse Resp BP Pulse Ox 99.7 F H 86 20 147/89 98 02/07/17 07:46 02/07/17 09:03 02/07/17 07:46 02/07/17 09:03 02/07/17 07:46 - Medications Medications: Current Medications Acetaminophen (Tylenol 325mg Tab) 650 mg PO Q6H PRN PRN Reason: Pain, Mild (1-3) Amlodipine Besylate (Norvasc) 10 mg PO DAILY [facility] Last Admin: 02/07/17 09:01 Dose: 10 mg Aspirin (Aspirin) 325 mg PO DAILY [facility] Last Admin: 02/07/17 09:01 Dose: 325 mg Atorvastatin Calcium (Lipitor) 40 mg PO DAILY [facility] Last Admin: 02/07/17 09:01 Dose: 40 mg Enoxaparin Sodium (Lovenox) 40 mg SC DAILY [facility] PRN Reason: Protocol Last Admin: 02/07/17 09:02 Dose: 40 mg Hydralazine HCl (Apresoline) 50 mg PO Q6 [facility] Last Admin: 02/07/17 09:03 Dose: 50 mg Metoprolol Succinate (Toprol Xl) 100 mg PO DAILY [facility] Last Admin: 02/07/17 09:01 Dose: 100 mg Zolpidem Tartrate (Ambien) 5 mg PO HS PRN PRN Reason: Insomnia Last Admin: 02/06/17 21:27 Dose: 5 mg - Additional Findings Additional findings: Physical exam: Constitutional- cooperative, awake, alert. Head- NCAT, PERRL Eye- PERRL, normal accommodation ENT- normal exam, MMM. Neck- normal inspection, supple, no JVD Respiratory- CTAB, no wheezes rales rhonchi Cardiovascular- RRR, +S1, +S2 no MRG GI/Abdominal- normal bowel sounds, soft, no mass, no hsm Skin- warm, dry Extremities Exam- normal capillary refill, normal inspection Neurological Exam- unstable gait. CN II-XII intact. Left sided weakness. Psych- normal mood, normal affect Assessment and Plan - Assessment and Plan (Free Text) Plan: 46 y/o gent with hx of HTN, brought in because of left facial droop and left sided weakness which started 12 hours prior to presentation. BP also noted to be uncontrolled with systolic in the 200's. Patient was admitted to ICU and monitored closely. Neurology consulted. Pt was started on ASA, statin, Lovenox for DVt proph. MRI of Brain: acute subacute CVA right external capsule BP monitored closely and slowly lowered. PT consulted, patient admitted to TCU for further rehabilitation needs. 1. Acute CVA (cerebrovascular accident) with left side weakness and left foot drop, unstable gait cont ASA, statin and BP control Neuro consult with Dr Haney appreciated MRA of brain : negative Carotid Sono: neg stenosis PT/OT consultation, pt is ongoing therapy in TCU Electrical stimulation to LLE 2. Hypertensive emergency Acute Pt came in with BP 200 systolic Pt was initially allowed permissive HTN for acute CVA cont Metoprolol, Norvasc and hydralazine 3. MARIANELA (acute kidney injury) on CKD stage III Acute unknown if pt has CKD stage III. Renal Us showed renal medical disease Most likely etiology uncontrolled HTN Nephro consult appreciated Cr stable Calcium acetate started for elevated Phos 4. Compensated CHF , most likely systolic dysfunction EF 30-35 % with global hypokinesis Continue BP control, Statin, ASA Will need cardio eval for stress test once stable. Follow up Echo in 6 months 5. Thrombocytopenia, resolved unclear etiology prob sec to meds monitor 6. DVT prophylaxis Acute Lovenox
[2017-02-08] MEDS: Enoxaparin 40 mg Syringe SC SCH (08:51)
[2017-02-08] MEDS: Metoprolol Succinate 100 mg XL Tab PO SCH (08:52)
[2017-02-09] MEDS: Metoprolol Succinate 100 mg XL Tab PO SCH (08:22)
[2017-02-09] MEDS: Enoxaparin 40 mg Syringe SC SCH (08:22)
[2017-02-10 07:05] LABS: CALCIUM 9.8 mg/dL (8.4-10.2); POTASSIUM 4.1 MMOL/L (3.6-5.0)
[2017-02-10] MEDS: Metoprolol Succinate 100 mg XL Tab PO SCH (08:19)
[2017-02-11] MEDS: Metoprolol Succinate 100 mg XL Tab PO SCH (09:11)
[2017-02-11 14:56] VITALS: BMI 27.4
[2017-02-12] MEDS: Metoprolol Succinate 100 mg XL Tab PO SCH (08:13)
--- NOTE | 2017-02-12 10:38 | CP.PCM.PN ---
Subjective - Date & Time of Evaluation Date of Evaluation: 02/12/17 Time of Evaluation: 10:00 - Subjective Subjective: The patient was seen and examined at bedside. He reports that he is feeling stronger than before. He has no complaints today. Still has minimal left sided weakness but relates it is improving. The patient denies any cp, sob, headache, abdominal pain, nausea, vomiting, or diarrhea. Objective - Vital Signs/Intake and Output Vital Signs (last 24 hours): Temp Pulse Resp BP Pulse Ox 99.0 F 75 20 132/83 96 02/12/17 07:56 02/12/17 10:27 02/12/17 07:56 02/12/17 10:27 02/12/17 07:56 - Medications Medications: Current Medications Acetaminophen (Tylenol 325mg Tab) 650 mg PO Q6H PRN PRN Reason: Pain, Mild (1-3) Amlodipine Besylate (Norvasc) 10 mg PO DAILY [facility] Last Admin: 02/12/17 08:14 Dose: 10 mg Aspirin (Aspirin) 325 mg PO DAILY [facility] Last Admin: 02/12/17 08:16 Dose: 325 mg Atorvastatin Calcium (Lipitor) 40 mg PO DAILY [facility] Last Admin: 02/12/17 08:14 Dose: 40 mg Hydralazine HCl (Apresoline) 50 mg PO Q6 [facility] Last Admin: 02/12/17 10:27 Dose: 50 mg Metoprolol Succinate (Toprol Xl) 100 mg PO DAILY [facility] Last Admin: 02/12/17 08:13 Dose: 100 mg Zolpidem Tartrate (Ambien) 5 mg PO HS PRN PRN Reason: Insomnia Last Admin: 02/11/17 21:19 Dose: 5 mg - Labs Labs: 02/10/17 05:30 - Additional Findings Additional findings: Physical exam: Constitutional- cooperative, awake, alert. Head- NCAT, PERRL Eye- PERRL, normal accommodation ENT- normal exam, MMM. Neck- normal inspection, supple, no JVD Respiratory- CTAB, no wheezes rales rhonchi Cardiovascular- RRR, +S1, +S2 no MRG GI/Abdominal- normal bowel sounds, soft, no mass, no hsm Skin- warm, dry Extremities Exam- normal capillary refill, normal inspection Neurological Exam- unstable gait. CN II-XII intact. Left sided weakness. Psych- normal mood, normal affect Assessment and Plan - Assessment and Plan (Free Text) Plan: 46 y/o gent with hx of HTN, brought in because of left facial droop and left sided weakness which started 12 hours prior to presentation. BP also noted to be uncontrolled with systolic in the 200's. Patient was admitted to ICU and monitored closely. Neurology consulted. Pt was started on ASA, statin, Lovenox for DVt proph. MRI of Brain: acute subacute CVA right external capsule BP monitored closely and slowly lowered. PT consulted, patient admitted to TCU for further rehabilitation needs. 1. Acute CVA (cerebrovascular accident) with left side weakness and left foot drop, unstable gait- improving well. cont ASA, statin and BP control Neuro consult with Dr Haney appreciated MRA of brain : negative Carotid Sono: neg stenosis PT/OT consultation, pt is ongoing therapy in TCU Electrical stimulation to LLE 2. Hypertensive emergency- resolved. BP is controlled. Acute Pt came in with BP 200 systolic Pt was initially allowed permissive HTN for acute CVA cont Metoprolol, Norvasc and hydralazine 3. CKD stage III Acute Patient's renal disease is likely chronic as evidenced by minimal change or response Most likely etiology uncontrolled HTN Nephro consult appreciated Cr stable Calcium acetate started for elevated Phos 4. Compensated CHF , most likely systolic dysfunction EF 30-35 % with global hypokinesis Continue BP control, Statin, ASA Will need cardio eval for stress test once stable. Follow up Echo in 6 months 5. Thrombocytopenia, resolved unclear etiology prob sec to meds monitor 6. DVT prophylaxis Acute Lovenox
[2017-02-13] MEDS: Metoprolol Succinate 100 mg XL Tab PO SCH (08:26)
[2017-02-14 06:44] LABS: HEMATOCRIT 34.8 % (35.0-51.0); MEAN CELL VOLUME 89.6 fl (80.0-94.0); MEAN CORPUSCULAR HEMOGLOBIN 31.1 pg (27.0-31.0); MEAN CORPUSCULAR HGB CONC 34.7 g/dL (33.0-37.0); RED CELL DISTRIBUTION WIDTH 13.1 % (11.5-14.5); WHITE BLOOD COUNT 9.1 K/uL (4.8-10.8)
[2017-02-14 07:37] LABS: CALCIUM 9.2 mg/dL (8.4-10.2); POTASSIUM 4.1 MMOL/L (3.6-5.0)
[2017-02-14] MEDS: Metoprolol Succinate 100 mg XL Tab PO SCH (08:17)
--- NOTE | 2017-02-14 19:21 | CP.PCM.PN ---
Subjective - Date & Time of Evaluation Date of Evaluation: 02/14/17 Time of Evaluation: 19:19 - Subjective Subjective: PATIENT SEEN AND EVALUATED FOR FALL THIS MORNING. PATIENT STATES HE WAS ALREADY SITTING IN HIS CHAIR AND SLOWLY SLID DOWN THE CHAIR ONTO THE GROUND. DENIES PAIN ANYWHERE, NO HEAD TRAUMA OR LOSS OF CONSCIOUSNESS. PATIENT IS STABLE, NO ACUTE DISTRESS. NO IMAGING STUDIES INDICATED AT THIS TIME. FOR DISCHARGE TOMORROW. Objective - Vital Signs/Intake and Output Vital Signs (last 24 hours): Temp Pulse Resp BP Pulse Ox 97.7 F 75 20 145/73 98 02/14/17 17:34 02/14/17 17:34 02/14/17 17:34 02/14/17 17:34 02/14/17 17:34 - Medications Medications: Current Medications Acetaminophen (Tylenol 325mg Tab) 650 mg PO Q6H PRN PRN Reason: Pain, Mild (1-3) Amlodipine Besylate (Norvasc) 10 mg PO DAILY [facility] Last Admin: 02/14/17 08:15 Dose: 10 mg Aspirin (Aspirin) 325 mg PO DAILY [facility] Last Admin: 02/14/17 08:17 Dose: 325 mg Atorvastatin Calcium (Lipitor) 40 mg PO DAILY [facility] Last Admin: 02/14/17 08:17 Dose: 40 mg Hydralazine HCl (Apresoline) 50 mg PO Q6 [facility] Last Admin: 02/14/17 17:26 Dose: 50 mg Metoprolol Succinate (Toprol Xl) 100 mg PO DAILY [facility] Last Admin: 02/14/17 08:17 Dose: 100 mg - Labs Labs: 02/14/17 05:25 02/14/17 05:25
[2017-02-14 19:46] VITALS: O2SAT 97
[2017-02-15 08:16] VITALS: TEMP 98.2
[2017-02-15] MEDS: Metoprolol Succinate 100 mg XL Tab PO SCH (10:30)
--- NOTE | 2017-02-15 11:24 | CP.PCM.DIS ---
Provider - Provider Date of Admission: 02/05/17 18:29 Attending physician: Juliana Carpio MD Time Spent in preparation of Discharge (in minutes): 30 Hospital Course - Lab Results Lab Results: Most Recent Lab Values WBC 9.1 K/uL (4.8-10.8) D 02/14/17 05:25 RBC 3.88 Mil/uL (4.40-5.90) L 02/14/17 05:25 Hgb 12.1 g/dL (12.0-18.0) 02/14/17 05:25 Hct 34.8 % (35.0-51.0) L 02/14/17 05:25 MCV 89.6 fl (80.0-94.0) 02/14/17 05:25 MCH 31.1 pg (27.0-31.0) H 02/14/17 05:25 MCHC 34.7 g/dL (33.0-37.0) 02/14/17 05:25 RDW 13.1 % (11.5-14.5) 02/14/17 05:25 Plt Count 127 K/uL (130-400) L 02/14/17 05:25 Sodium 142 mmol/l (132-148) 02/14/17 05:25 Potassium 4.1 MMOL/L (3.6-5.0) 02/14/17 05:25 Chloride 105 mmol/L (98-107) 02/14/17 05:25 Carbon Dioxide 25 mmol/L (22-30) 02/14/17 05:25 Anion Gap 16 (10-20) 02/14/17 05:25 BUN 26 mg/dl (9-20) H 02/14/17 05:25 Creatinine 2.2 mg/dL (0.8-1.5) H 02/14/17 05:25 Est GFR ( Amer) 39 02/14/17 05:25 Est GFR (Non-Af Amer) 32 02/14/17 05:25 Random Glucose 91 mg/dL (75-110) 02/14/17 05:25 Calcium 9.2 mg/dL (8.4-10.2) 02/14/17 05:25 - Hospital Course Hospital Course: 46 y/o gent with hx of HTN, brought in because of left facial droop and left sided weakness which started 12 hours prior to presentation. BP also noted to be uncontrolled with systolic in the 200's. Patient was admitted to ICU and monitored closely. Neurology consulted. Pt was started on ASA, statin, Lovenox for DVt proph. MRI of Brain: acute subacute CVA right external capsule BP monitored closely and slowly lowered. PT consulted, patient admitted to TCU for further rehabilitation needs. Pt tolerated rehab very well, stable for discharge home wt follow up [facility] and NEURO Dr. Haney. Discharge Exam - Head Exam Additional comments: Constitutional- cooperative, awake, alert. Head- NCAT, PERRL Eye- PERRL, normal accommodation ENT- normal exam, MMM. Neck- normal inspection, supple, no JVD Respiratory- CTAB, no wheezes rales rhonchi Cardiovascular- RRR, +S1, +S2 no MRG GI/Abdominal- normal bowel sounds, soft, no mass, no hsm Skin- warm, dry Extremities Exam- normal capillary refill, normal inspection Neurological Exam- unstable gait. CN II-XII intact. Left sided weakness. Psych- normal mood, normal affect Discharge Plan - Discharge Medications Prescriptions: amLODIPine [Norvasc] 10 mg PO DAILY #30 tab Aspirin 325 mg PO DAILY #30 tab Atorvastatin [Lipitor] 40 mg PO DAILY #30 tab hydrALAZINE [Apresoline] 50 mg PO Q6 #120 tab Metoprolol Succinate [Toprol XL] 100 mg PO DAILY #30 tab - Follow Up Plan Condition: GOOD Disposition: HOME/ ROUTINE Instructions: Fall Prevention (DC), Stroke (DC) Additional Instructions: PATIENT TO FOLLOW UP WITH PRIMARY CARE PHYSICIAN IN ONE WEEK WELL PATIENT NEUROLOGIST IN ONE WEEK. RETURN TO CLOSEST ER IF CONDITION WORSENS OR RETURNS.
[2017-02-15 12:29] VITALS: BP 131/85; PULSE 86
== END 2017-02-15 14:45 | disposition home or self-care (01) | DRG 57 ==
LOC: H.TCU 18:29
PROVIDERS: ADMIT Internal Medicine; ATTEND Internal Medicine
PROC: F07Z9FZ Gait Training/Functional Ambulation Treatment using Assistive, Adaptive, Supportive or Protective Equipment (ICD-10-PCS; principal; 2017-02-05)
PROC: F08Z4FZ Home Management Treatment using Assistive, Adaptive, Supportive or Protective Equipment (ICD-10-PCS; 2017-02-05)
PROC: 3E0234Z Introduction of Serum, Toxoid and Vaccine into Muscle, Percutaneous Approach (ICD-10-PCS; 2017-02-05)
PROC: F07M6FZ Therapeutic Exercise Treatment of Musculoskeletal System - Whole Body using Assistive, Adaptive, Supportive or Protective Equipment (ICD-10-PCS; 2017-02-06)
DX: I69.354 Hemiplegia and hemiparesis following cerebral infarction affecting left non-dominant side (principal); I13.0 Hypertensive heart and chronic kidney disease with heart failure and stage 1 through stage 4 chronic kidney disease, or unspecified chronic kidney disease; I50.20 Unspecified systolic (congestive) heart failure; N18.3 Chronic kidney disease, stage 3 (moderate); I69.392 Facial weakness following cerebral infarction; I69.398 Other sequelae of cerebral infarction; M21.372 Foot drop, left foot; Z23 Encounter for immunization